=== PATIENT | female | born 1960 | race Caucasian/White ===

== ENCOUNTER → 2016-11-14 11:24 | Outpatient (CLI) | payer BC ==
[2016-04-22 11:11] VITALS: BMI 21.0
[~2016-11-14 11:24] MED LIST: CALCIUM 600+D T1 TA1 PO; DEMEROL 50 M50 MG/ML IM; IBUPROFEN600 MG PO; IBUPROFEN800 MG PO; MACROBID100 MG GT; OS-CAL500 MG PO; ULTRAM50 MG PO; VITAMIN D10000 UNI1 PO; VITAMIN D31000 UNI2 PO
== END | disposition home or self-care (01) ==
LOC: D.MRI 11:24
DX: M54.9 Dorsalgia, unspecified (principal)

== ENCOUNTER 2016-11-30 06:27 | Outpatient (CLI) | payer BC ==
[~2016-11-30] VITALS: Ht 162.6 cm; Wt 55.0 kg
[2016-11-30 07:36] VITALS: BP 111/69; Ht 162.6 cm; Wt 55.0 kg
[2016-11-30 07:43] LABS: BASOPHILS 0.9 % (0-2); HEMATOCRIT 39.9 % (36.0-48.0); HEMOGLOBIN 13.6 g/dL (12-16); LYMPHOCYTES 31.3 % (15-50); MCH 29.8 pg (26.0-34.0); MCHC 34.1 g/dL (31.0-37.0); MCV 87.5 fL (80.0-100.0); MEAN PLATELET VOLUME 9.9 fL (7.4-10.4); MONOCYTES 8.6 % (2-11); NEUTROPHILS 57.2 % (40-80); PLATELET COUNT 173 10x3/uL (130-400); RBC 4.56 10x6/uL (4.00-5.40); RDW 13.4 % (11.5-14.5); WBC 3.5 10x3/uL (4.8-10.8)
[2016-11-30 07:55] LABS: CALC OSMOLALITY 282 mosm/kg (275-300); CALCIUM 8.6 mg/dL (8.5-10.1); CARBON DIOXIDE 30.9 mmol/L (21.0-32.0); CHLORIDE - SERUM 105 mmol/L (98-107); CREATININE - SERUM 0.7 mg/dL (0.6-1.3); GLUCOSE 90 mg/dL (74-106); POTASSIUM - SERUM 4.1 mmol/L (3.5-5.1); SODIUM 141 mmol/L (136-145); UREA NITROGEN 18 mg/dL (7-18); eGFR NON AFRICAN AMERICAN > 90 mL/min (90-120)
[2016-11-30 07:58] LABS: APTT 27.7 SECONDS (22.8-39.4); INR 0.97 (0.85-1.17); PROTIME 12.7 SECONDS (11.6-15.0)
--- NOTE | 2016-11-30 10:45 | NUR ---
1043--PT COMPLAINS OF PAIN, RATES PAIN 4/10. TORODOL 30MG SIVP GIVEN, PT TOLERATED WELL. PT DENIES NEEDS, WILL CONTINUE TO MONITOR. TRACY BRADFORD
--- NOTE | 2016-11-30 10:49 | NUR ---
1000--ALL VITAL SIGNS CHARTED ON POST PROCEDURE VITAL SIGN SHEET ON CHART. TRACY BRADFORD
--- NOTE | 2016-11-30 17:33 | NUR ---
1201--PT COMPLAINS OF PAIN, RATES PAIN 01/07. OXYCODONE 10MG GIVEN PO, IV DC'D. TRACY BRADFORD 1220--DISCHARGE INSTRUCTIONS GIVEN, PT VERBALIZES UNDERSTANDING. PT OFF UNIT VIA HOSPITAL PERSONNEL. TRACY BRADFORD
== END 2016-11-30 12:20 | disposition home or self-care (01) ==
LOC: D.OPS 06:27 → D.CT 08:00 → D.OPS 08:00
PROVIDERS: Radiology Diagnostic Radiology
DX: C79.51 Secondary malignant neoplasm of bone (principal); Z85.3 Personal history of malignant neoplasm of breast

== ENCOUNTER 2016-12-09 06:37 | Outpatient (CLI) | payer BC ==
[~2016-12-09] VITALS: Ht 162.6 cm; Wt 54.5 kg
[2016-12-09] MEDS ORDERED: ROBAXIN-750750 MG PO (07:31)
[2016-12-09 07:48] VITALS: BP 122/75; Ht 162.6 cm; Wt 54.5 kg
[2016-12-09 08:14] LABS: BASOPHILS 0.5 % (0-2); EOSINOPHILS 2.9 % (0-7); HEMATOCRIT 40.9 % (36.0-48.0); HEMOGLOBIN 13.5 g/dL (12-16); IMMATURE GRANULOCYTES 0.3 % (0-5); LYMPHOCYTES 20.6 % (15-50); MCV 87.8 fL (80.0-100.0); MONOCYTES 6.1 % (2-11); NEUTROPHILS 69.6 % (40-80); PLATELET COUNT 185 10x3/uL (130-400); RBC 4.66 10x6/uL (4.00-5.40); RDW 13.3 % (11.5-14.5); WBC 3.8 10x3/uL (4.8-10.8)
[2016-12-09 08:21] LABS: APTT 27.6 SECONDS (22.8-39.4); CALC OSMOLALITY 282 mosm/kg (275-300); CARBON DIOXIDE 30.9 mmol/L (21.0-32.0); CHLORIDE - SERUM 106 mmol/L (98-107); CREATININE - SERUM 0.5 mg/dL (0.6-1.3); GLUCOSE 101 mg/dL (74-106); INR 0.91 (0.85-1.17); PROTIME 12.1 SECONDS (11.6-15.0); SODIUM 141 mmol/L (136-145); UREA NITROGEN 17 mg/dL (7-18); eGFR NON AFRICAN AMERICAN > 90 mL/min (90-120)
--- NOTE | 2016-12-09 09:33 | NUR ---
0915--ALL VITAL SIGNS CHARTED ON POST PROCEDURE VITAL SIGN SHEET ON CHART. TRACY BRADFORD
--- NOTE | 2016-12-09 12:49 | NUR ---
1200--IV DC'D. PT UP TO DRESS AT THIS TIME. TRACY BRADFORD 1240--OK TO DISCHARGE PER STEF SINGER RATING OFFICER. DISCHARGE INSTRUCTIONS GIVEN, PT VERBALIZES UNDERSTANDING. PT OFF UNIT VIA WC. TRACY BRADFORD
[2016-12-09 15:09] LABS: PROTEIN - BODY FLUID 4.4 G/DL
[2016-12-09 15:59] LABS: LYMPH - BF 26 %; MACROPHAGES BF 68 %; MESOTHELIALS BF 3 %; NEUT - BF 3 %
== END 2016-12-09 12:40 | disposition home or self-care (01) ==
LOC: D.OPS 06:37 → D.SP 09:00 → D.OPS 12:40
PROVIDERS: General Practice; Internal Medicine Medical Oncology; Radiology Diagnostic Radiology
DX: C50.919 Malignant neoplasm of unspecified site of unspecified female breast (principal); J90 Pleural effusion, not elsewhere classified

== ENCOUNTER → 2016-12-30 14:53 | Outpatient (CLI) | payer BC ==
[2016-12-09 07:48] VITALS: BMI 20.6
[~2016-12-30 14:53] MED LIST changes: +ROBAXIN-750750 MG PO; +ZOFRAN ODT4 MG/UDTAB PO
== END | disposition home or self-care (01) ==
LOC: D.CT 14:53
DX: R31.0 Gross hematuria (principal)

== ENCOUNTER 2017-01-05 08:29 | Day surgery (SDC) | payer BC ==
[~2017-01-05] VITALS: Ht 162.6 cm; Wt 53.5 kg
[2017-01-05 09:39] LABS: BASOPHILS 1.3 % (0-2); EOSINOPHILS 1.3 % (0-7); HEMATOCRIT 40.7 % (36.0-48.0); HEMOGLOBIN 13.3 g/dL (12-16); IMMATURE GRANULOCYTES 0.9 % (0-5); LYMPHOCYTES 30.3 % (15-50); MCH 29.3 pg (26.0-34.0); MCHC 32.7 g/dL (31.0-37.0); MCV 89.6 fL (80.0-100.0); MEAN PLATELET VOLUME 9.6 fL (7.4-10.4); MONOCYTES 9.7 % (2-11); NEUTROPHILS 56.5 % (40-80); PLATELET COUNT 208 10x3/uL (130-400); RBC 4.54 10x6/uL (4.00-5.40); WBC 3.2 10x3/uL (4.8-10.8)
[2017-01-05 09:44] VITALS: BP 123/81; Ht 162.6 cm; Wt 53.5 kg
[2017-01-05 09:58] LABS: ALBUMIN 3.7 g/dL (3.4-5.0); ALKALINE PHOSPHATASE 83 U/L (46-116); ALT (SGPT) 24 U/L (10-68); BILIRUBIN - TOTAL 0.37 mg/dL (0.2-1.3); CALC OSMOLALITY 281 mosm/kg (275-300); CALCIUM 8.2 mg/dL (8.5-10.1); CARBON DIOXIDE 27.5 mmol/L (21.0-32.0); CHLORIDE - SERUM 106 mmol/L (98-107); CREATININE - SERUM 0.6 mg/dL (0.6-1.3); GLUCOSE 96 mg/dL (74-106); POTASSIUM - SERUM 4.1 mmol/L (3.5-5.1); PROTEIN - SERUM 7.1 g/dL (6.4-8.2); SODIUM 141 mmol/L (136-145); UREA NITROGEN 16 mg/dL (7-18); eGFR NON AFRICAN AMERICAN > 90 mL/min (90-120)
[2017-01-05 10:03] LABS: APTT 28.4 SECONDS (22.8-39.4); INR 0.95 (0.85-1.17); PROTIME 12.5 SECONDS (11.6-15.0)
--- NOTE | 2017-01-06 15:49 | OP ---
PATIENT NAME: TYRA MARTINEZ MEDICAL RECORD: [id number] :58 LOCATION:D.OPS ADMISSION DATE: SURGEON: GARRY ESPINOZA MD DATE OF OPERATION: 01/05/2017 DATE OF SURGERY: 01/05/2017. SURGEON: Garry Espinoza MD. ANESTHESIA: MAC by Boston Dumont CRNA. PREOPERATIVE DIAGNOSES: Gross hematuria, metastatic breast cancer. POSTOPERATIVE FINDINGS: Single ureteral orifices. No bladder tumors. PROCEDURE: Cystoscopy. ESTIMATED BLOOD LOSS: None. CLINICAL HISTORY: This is a 56-year-old female, who has had breast cancer. She has had bilateral mastectomies. She is also known to have metastatic disease to the bone. Just after Thanksgiving last year she developed gross hematuria. There was only one episode and it has not happened again. I saw her in consultation for hematuria. She had a CT scan of the abdomen and pelvis. This showed possible abdominal carcinomatosis as well as breast cancer metastases to the spine. The kidneys, ureters and bladder appeared to be normal on the CT scan. We are performing cystoscopy today to make sure that she does not have any tumors in her bladder. She was given Ancef 1 gram IV credit verification clerk to the OR. DESCRIPTION OF PROCEDURE: The patient was given IV sedation. She was placed in the dorsal lithotomy position and prepped and draped. A 21-Bengali cystoscope with 30-degree lens was used for visualization. She has single ureteral orifices on each side. No bladder tumors were seen. No bladder inflammation was seen. The bladder was emptied through the cystoscope and the scope was removed. TRANSINT:[id number] Voice Confirmation ID: [id number] DOCUMENT ID: [id number] GARRY ESPINOZA MD at 1549 CC: [id number] DICTATION DATE: 01/05/17 1223 FASHION SHOW DIRECTOR: 01/05/17 2158 [facility] 01/05/17 [place] [id number]
== END 2017-01-05 13:25 | disposition home or self-care (01) ==
LOC: D.OPS 08:29 → D.PAN 11:00 → D.OPS 11:00
PROVIDERS: Anesthesiology
DX: R31.0 Gross hematuria (principal); C50.919 Malignant neoplasm of unspecified site of unspecified female breast; C79.51 Secondary malignant neoplasm of bone

== ENCOUNTER → 2017-05-02 14:16 | Outpatient (CLI) | payer BC ==
[2017-01-05 09:44] VITALS: BMI 20.3
== END | disposition home or self-care (01) ==
LOC: D.MRI 14:00
DX: C50.919 Malignant neoplasm of unspecified site of unspecified female breast (principal); C79.51 Secondary malignant neoplasm of bone

== ENCOUNTER → 2017-11-30 08:02 | Outpatient (CLI) | payer BC ==
[2017-01-05 09:44] VITALS: BMI 20.3
== END | disposition home or self-care (01) ==
LOC: D.NM 08:02
DX: C50.919 Malignant neoplasm of unspecified site of unspecified female breast (principal); C79.51 Secondary malignant neoplasm of bone

== ENCOUNTER → 2018-07-18 11:20 | Outpatient (CLI) | payer BC ==
[2017-01-05 09:44] VITALS: BMI 20.3
== END | disposition home or self-care (01) ==
LOC: D.MRI 11:20
DX: M54.5 Low back pain (principal)

== ENCOUNTER 2018-11-20 16:32 | Emergency (ER) | payer BC ==
[~2018-11-20] VITALS: Ht 162.6 cm; Wt 49.5 kg
[2018-11-20 16:37] VITALS: Ht 162.6 cm; Wt 49.5 kg
[2018-11-20] MEDS ORDERED: TAMOXIFEN CITRA20 MG PO (16:38)
[2018-11-20] MEDS ORDERED: ASPIRIN81 MG PO (16:38)
[2018-11-20 17:17] LABS: HEMOGLOBIN 13.5 g/dL (12-16); MCH 28.8 pg (26.0-34.0); MCHC 32.9 g/dL (31.0-37.0); MCV 87.4 fL (80.0-100.0); MEAN PLATELET VOLUME 10.6 fL (7.4-10.4); PLATELET COUNT 173 10x3/uL (130-400); RBC 4.69 10x6/uL (4.00-5.40); RDW 14.4 % (11.5-14.5); WBC 2.9 10x3/uL (4.8-10.8)
[2018-11-20 17:37] LABS: APPEARANCE CLEAR (CLEAR); COLOR YELLOW (YELLOW); SPECIFIC GRAVITY 1.025 (1.005-1.020)
[2018-11-20 17:38] LABS: BILIRUBIN NEGATIVE (NEGATIVE); GLUCOSE NEGATIVE (NEGATIVE); KETONE NEGATIVE (NEGATIVE); NITRITE NEGATIVE (NEGATIVE); PROTEIN NEGATIVE (NEGATIVE); UROBILINOGEN NORMAL (NORMAL)
[2018-11-20 17:47] LABS: ALBUMIN 3.4 g/dL (3.4-5.0); ANION GAP 8.9 mmol/L (8-16); BILIRUBIN - TOTAL 0.21 mg/dL (0.2-1.3); CALCIUM 8.6 mg/dL (8.5-10.1); CARBON DIOXIDE 28.5 mmol/L (21.0-32.0); CREATININE - SERUM 0.9 mg/dL (0.6-1.3); POTASSIUM - SERUM 3.4 mmol/L (3.5-5.1)
[2018-11-20 17:58] LABS: EOSINOPHILS 4 % (0-7); LYMPHOCYTES 26 % (15-50); MONOCYTES 6 % (2-11); NEUTROPHILS 62 % (40-80); PLATELET ESTIMATE NORMAL
[2018-11-20] MEDS ORDERED: ZOFRAN ODT4 MG/UDTAB PO (22:10)
[2018-11-20] MEDS ORDERED: FLORASTOR250 MG PO (22:10)
[2018-11-20 22:18] VITALS: BP 170/76
== END 2018-11-20 23:12 | disposition home or self-care (01) ==
LOC: D.ER 16:32
PROVIDERS: Family Medicine
DX: R19.7 Diarrhea, unspecified (principal); R11.2 Nausea with vomiting, unspecified; B34.9 Viral infection, unspecified; Z85.3 Personal history of malignant neoplasm of breast

== ENCOUNTER → 2019-06-19 10:38 | Outpatient (CLI) | payer MEDICARE, BC ==
[2018-11-20 16:37] VITALS: BMI 18.7
[~2019-06-19 10:38] MED LIST changes: +ASPIRIN81 MG PO; +FLORASTOR250 MG PO; +TAMOXIFEN CITRA20 MG PO
== END | disposition home or self-care (01) ==
LOC: D.MRI 10:38
PROVIDERS: ATTEND Family Medicine
DX: C79.51 Secondary malignant neoplasm of bone (principal); M54.41 Lumbago with sciatica, right side

== ENCOUNTER → 2020-01-01 11:26 | Outpatient (CLI) | payer MEDICARE, BC ==
[2018-11-20 16:37] VITALS: BMI 18.7
== END | disposition home or self-care (01) ==
LOC: D.CT 11:26
PROVIDERS: ATTEND Family Medicine
DX: R05 Cough (principal)

== ENCOUNTER 2020-01-19 21:40 | Inpatient (IN) | payer MEDICARE, BC ==
[~2020-01-19] VITALS: Ht 162.6 cm; Wt 51.7 kg
[2020-01-19] MEDS ORDERED: AUGMENTIN PO (21:50)
[2020-01-19] MEDS ORDERED: ELDERBERRY PO (21:53)
[2020-01-19 22:36] LABS: HEMATOCRIT 34.3 % (36.0-48.0); HEMOGLOBIN 11.2 g/dL (12-16); LYMPHOCYTES 18.5 % (15-50); MCHC 32.7 g/dL (31.0-37.0); MEAN PLATELET VOLUME 7.8 fL (7.4-10.4); NEUTROPHILS 74.7 % (40-80); RBC 3.61 10x6/uL (4.00-5.40); RDW 13.6 % (11.5-14.5); WBC 7.7 10x3/uL (4.8-10.8)
[2020-01-19 22:37] LABS: PLATELET COUNT 407 10x3/uL (130-400)
[2020-01-19 22:46] LABS: CALC OSMOLALITY 267 mosm/kg (275-300); CARBON DIOXIDE 30.2 mmol/L (21.0-32.0); CHLORIDE - SERUM 97 mmol/L (98-107); SODIUM 134 mmol/L (136-145); UREA NITROGEN 10 mg/dL (7-18); eGFR NON AFRICAN AMERICAN 60 mL/min (90-120)
[2020-01-19 22:48] LABS: GLUCOSE 121 mg/dL (74-106)
[2020-01-19 23:03] LABS: ALBUMIN 3.2 g/dL (3.4-5.0); ALKALINE PHOSPHATASE 83 U/L (30-120); ALT (SGPT) 14 U/L (10-68); BILIRUBIN - TOTAL 0.35 mg/dL (0.2-1.3); C-REACTIVE PROTEIN 6.4 mg/dL (0.0-0.9); PRO BNP 138 pg/mL (0-125); PROTEIN - SERUM 7.6 g/dL (6.4-8.2)
[2020-01-19 23:04] LABS: TROPONIN-I < 0.017 ng/mL (0.000-0.060)
[2020-01-19 23:46] LABS: GLUCOSE NEGATIVE (NEGATIVE); NITRITE NEGATIVE (NEGATIVE); SPECIFIC GRAVITY 1.015 (1.005-1.020)
[2020-01-19 23:47] LABS: BILIRUBIN NEGATIVE (NEGATIVE); KETONE NEGATIVE (NEGATIVE); UROBILINOGEN NORMAL (NORMAL)
[2020-01-19 23:48] LABS: BACTERIA FEW /hpf (NEGATIVE); EPITHELIAL CELLS NSEEN /hpf (0-5); RED CELLS - URINE NONE SEEN /hpf (0-5); WHITE CELLS - URINE 0-5 /hpf (NEGATIVE)
[2020-01-20] MEDS ORDERED: AMOX TR-K CLV 21 TAB PO (00:20)
[2020-01-20] MEDS ORDERED: ZOFRAN8 MG PO (00:22)
[2020-01-20] MEDS ORDERED: PROBIOTIC BLEN1 EACH (00:22)
[2020-01-20] MEDS ORDERED: FEMARA2.5 MG PO (00:24)
[2020-01-20] MEDS ORDERED: BAYER CHEWABLE81 MG PO (00:24)
[2020-01-20] MEDS ORDERED: OS-CAL500 MG PO (00:26)
[2020-01-20] MEDS ORDERED: MULTI-DAY VITAM1 TAB PO (00:28)
[2020-01-20] MEDS ORDERED: VITAMIN D5000 UNI1 PO (00:28)
[2020-01-20] MEDS ORDERED: ASCORBIC ACID500 MG PO (00:29)
--- NOTE | 2020-01-20 00:43 | NUR ---
RECEIVED TO ROOM VIA STRECHER FROM ER. ALERT.ORIENTD. RESP EVEN AND UNLAOBRED. IV TO RFA WITHOUT REDNESS OR EDEMA NOTED. UP AD ISMAEL IN ROOM. NO DISTRESS NOTED. ORIENTED TO ROOM.
[2020-01-20 01:19] VITALS: BP 114/76; BMI 19.6
[2020-01-20 04:00] VITALS: BP 91/61
--- NOTE | 2020-01-20 06:50 | NUR ---
ALERT AND ORIENTED, RESTING IN BED WITH EYES OPEN. NO C/O PAIN. NO S/S OF ACUTE DISTRESS NOTED. IV TO RIGHT FOREARM, SL. SITE PATENT WITHOUT REDNESS OR SWELLING. DENIES ANY NEEDS AT THIS TIME. CALL LIGHT IN REACH. WILL CONTINUE TO MONITOR.
--- NOTE | 2020-01-20 09:05 | NUR ---
ADMINSTERED TB SKIN TEST TO RIGHT FOREARM
[2020-01-20 09:31] VITALS: BP 109/71
--- NOTE | 2020-01-20 10:37 | NUR ---
I have reviewed this patient and I concur with the Shift Assessment completed by the Licensed Practical Nurse today this shift.
--- NOTE | 2020-01-20 13:44 | HP ---
PATIENT: TYRA MARTINEZ MEDICAL RECORD: [id number] ACCOUNT: [id number] LOCATION:D.MS [place]3 : 58 ADMISSION DATE: 01/19/20 PCP: HARISH VO MD HISTORY AND PHYSICAL EXAMINATION REASON FOR ADMISSION: Cough with fevers for 6 weeks. HISTORY OF PRESENT ILLNESS: The patient is a 59-year-old female with history of stage IV malignant neoplasm of the breast, ER status positive, TN status positive, HER2 gene amplification FISH negative, HER2 gene protein overexpression. The patient has been on tamoxifen for some time. She had a PET CT scan per Dr. Tovar recently, which showed chronic thoracic and lumbar lytic lesions and some mild lymphadenopathy. On November 27 of this year, she developed some pleuritic pain in her left lower chest. She was seen in the office with a negative chest film, was placed on a steroid Dosepak and Z-PATRICIA as she had productive cough. This has seemed to improve. She had surgery for a tendinitis in her left wrist at [facility] on 12/16/2019. Developed 101 fever 2 days after surgery. COVID swab was negative. Her fever continued at 101.4 up to 100.8 and a chest x-ray in the office was unremarkable and doxycycline was started for 10 days. Her fever gradually defervesced and by 01/01/2020, she was afebrile. On 01/02/2020, she had CT scan of her chest because of recurrent cough and chills and did show bilateral ground-glass appearance suggesting viral or bacterial pneumonia. For that reason, she was started on Levaquin for 7 days with improvement in symptoms again. She then had a COVID antibody test that was negative with swab again was negative. She finished Levaquin on 01/10/2020, was afebrile for 3 days and temperature came back to 100.7. Augmentin was started empirically on 01/15/2020, fever, has not improved. She has been checking her oxygen saturations at rest, they are 96-97 even with ambulating when she rests and recovery it will drop to 90%. She has had a pleuritic pain in her left chest, it is better than it was. When she exhales quickly she does cough, but the cough is nonproductive. She has had no change in sense of smell or taste throughout this entire time. PAST MEDICAL HISTORY: Breast cancer as mentioned above, postmenopausal, history of hepatitis C, post-interferon therapy. History of remote SVT, history of cervical disc disease with spinal fusion, had lumbar compression fracture with lumbar metastases. PAST SURGICAL HISTORY: Cervical spinal fusion, TAHBSO in 2016 with cystocele and rectocele repair. Bilateral mastectomy in 2003. Reconstructive breast implants by Dr. Solares. Tonsillectomy as a child. FAMILY HISTORY: Father with amyloid and COPD, and mother with breast cancer. 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 CURRENT MEDICATIONS: Augmentin 500 mg t.i.d. p.c., Femara 2.5 mg daily, aspirin 81 mg daily, Ultram 50 mg q.6 hours p.r.n. back pain, vitamin D 500 mg b.i.d., Zofran 8 mg p.r.n. nausea, Florastor 250 mg capsule p.o. b.i.d., vitamin C 500 mg daily, vitamin D3 2000 units daily, multivitamin 1 daily, elderberry p.r.n. ALLERGIES: MORPHINE. REVIEW OF SYSTEMS: HISTORY AND PHYSICAL [id number] CARLOS MARTINEZGAYATRI Sim GENERAL: She has been fatigued for the last 6 weeks. She has had fair appetite and intermittent fevers as mentioned. HEENT: No recent visual change, sinus congestion, sore throat, or loss of sense of taste or smell. Hearing is good. RESPIRATORY: She denies shortness of breath with moderate exercise, worse if she has increased exercise. She will cough when she exhales and had pleuritic pain in her left lower chest wall below her breast implant that has improved. Cough has been nonproductive. No hemoptysis. CARDIAC: No palpitations, PND, orthopnea. GASTROINTESTINAL: No nausea, vomiting, change in stools or blood per rectum. GENITOURINARY: No dysuria. GYNECOLOGIC: No vaginal bleeding. ENDOCRINE: Denies polyuria, polydipsia, heat or cold intolerance. NEUROLOGIC: No history of stroke, TIA, or vascular headaches. INTEGUMENT: No rash or itching. PSYCHIATRIC: Admits to some depressed mood, but overall has no suicidal tendencies. PHYSICAL EXAMINATION: VITAL SIGNS: Temperature 98.2, respirations are 20, pulse 98, blood pressure 137/95, sats 99% on room air. GENERAL: Thin, alert female, NAD. HEENT: Her eyes are clear. Oropharynx unremarkable. Her throat shows mild erythema of the soft palate. No petechiae, pustules or exudate. Her tonsils are absent surgically. NECK: Supple, without adenopathy. CHEST: She has faint wheezes with coughing on forced expiration bilaterally. No rales. HEART: Regular rate and rhythm without murmur. BREASTS: Implants symmetrical. There is no axillary adenopathy. No inguinal adenopathy. ABDOMEN: Soft, nontender, no organomegaly. EXTREMITIES: No CC&E. NEUROLOGICAL: Oriented to person, place, and time. Cranial nerves intact. Gait normal. PSYCHIATRIC: Mood appears good. LABORATORY DATA: Shows a white count 7700 with 74 polys and 18 lymphs, platelet count is 407,000. Sodium is 134, BUN and creatinine are 10 and 1.0, glucose 121 nonfasting. Lactic acid 0.5. C-reactive protein is elevated at 6.4. ProBNP is 138, albumin low at 3.2. Influenza A and B were negative. RSV rapid is negative. Group A strep is negative. Previous COVID nasal swab times 2 and serum antibody tests are negative. DIAGNOSTIC DATA: She reports she had a chest x-ray on admission last night, I did not see that. Her CT chest from 01/01/2020 shows patchy ground-glass opacities in the right greater than left lungs peripherally. Focal left lower lobe consolidation may indicate atelectasis, but underlying mass is not ruled out. ASSESSMENT: 1. Atypical pneumonia with fever, unresponsive to oral antibiotics. 2. COVID negative 3. Stage IV breast cancer with recent CT PET scan at [facility] showing some adenopathy, but overall stable. HISTORY AND PHYSICAL [id number] TYRA MARTINEZ PLAN: Start empiric antibiotics, pulmonary consult, may need bronchoscopy, repeat CT scan. TRANSINT:[id number] Voice Confirmation ID: [id number] DOCUMENT ID: [id number] HARISH VO MD at 1344 CC: [id number] DICTATION DATE: 01/20/20 0711 FLUX MIXER: 01/20/20 1211 ADM IN [place] [id number] [place] [address]
[2020-01-20 14:02] VITALS: BP 110/68
--- NOTE | 2020-01-20 16:41 | NUR ---
PT WASHED SELF UP WITH LINEN CHANGE. C/L IN REACH AT BEDSIDE.
[2020-01-20 18:40] VITALS: BP 107/70
--- NOTE | 2020-01-20 18:47 | NUR ---
ALERT AND ORIENTED. NO C/O PAIN. NO S/S OF ACUTE DISTRESS NOTED. DENIES ANY NEEDS AT THIS TIME. CALL LIGHT IN REACH. WILL CONTINUE TO MONITOR.
[2020-01-20 20:46] VITALS: BP 105/79
--- NOTE | 2020-01-20 23:30 | NUR ---
PATIENT REQUESTED DOCUMENTATION. PATIENT WAS UP TO THE BATHROOM AND REPORTS," A CHILL ON RETURNING TO BED." SHE THEN CHECKED HER TEMP WITH HER THERMOMETER AND GOT A TEMP OF 100.0. TECH THEN CHCKED HER TEMP 5 MINUTES LATER AT 2335 AND GOT A TEMP OF 98.2.
[2020-01-21] VITALS (7 sets, daily range): BP systolic 108–144; BP diastolic 57–81; Ht 162.6 cm; Wt 51.7 kg
--- NOTE | 2020-01-21 07:43 | NUR ---
ALERT AND ORIENTED. LUNGS CLEAR BILATERALLY. HEART SOUNDS S1 AND S2 HEARD IN ALL VALENTIN. BOWEL SOUNDS ACTIVE X 4. IV TO RFA PATENT WITHOUT REDNESS. PATIENT STATES THAT WHEN TAKES OWN TEMP WITH GLASS THERMOMETER FROM HOME, SPIKES FEVER AT NIGHT. STATES WANTS TEMP DOCUMENTED WITH HER THERMOMETER. WILL CHART IN NOTES. BED LOW. CALL DICK AND PERSONAL ITEMS IN REACH. WILL CONTINUE TO MONITOR.
--- NOTE | 2020-01-21 08:30 | NUR ---
CALLED PHARMACY TO BRING PATIENT'S LETRAZOLE. STATES WILL BRING.
--- NOTE | 2020-01-21 11:38 | NUR ---
PATIENT C/O IV PAINFUL TO RIGHT WRIST/FOREARM AREA. REMOVED WITH TIP INTACT. RESITED TO RFA AFTER ONE ATTEMPT WITH 20GAUGE.
[2020-01-21 14:31] LABS: BASOPHILS 0.5 % (0-2); EOSINOPHILS 3.1 % (0-7); HEMATOCRIT 31.7 % (36.0-48.0); HEMOGLOBIN 10.2 g/dL (12-16); IMMATURE GRANULOCYTES 0.3 % (0-5); LYMPHOCYTES 15.2 % (15-50); MCH 30.4 pg (26.0-34.0); MCHC 32.2 g/dL (31.0-37.0); MCV 94.3 fL (80.0-100.0); MEAN PLATELET VOLUME 8.6 fL (7.4-10.4); MONOCYTES 10.6 % (2-11); NEUTROPHILS 70.3 % (40-80); RBC 3.36 10x6/uL (4.00-5.40); RDW 13.9 % (11.5-14.5); WBC 5.9 10x3/uL (4.8-10.8)
[2020-01-21 14:49] LABS: APTT 36.9 SECONDS (22.8-39.4)
[2020-01-21 14:50] LABS: INR 1.03 (0.85-1.17); PROTIME 13.5 SECONDS (11.6-15.0)
[2020-01-21 15:00] LABS: PLATELET COUNT 298 10x3/uL (130-400)
[2020-01-22] VITALS (12 sets, daily range): BP systolic 103–123; BP diastolic 64–88
--- NOTE | 2020-01-22 02:21 | NUR ---
I have reviewed this patient and I concur with the Shift Assessment completed by the Licensed Practical Nurse today this shift.
--- NOTE | 2020-01-22 07:33 | NUR ---
ALERT AND ORIENTED. LUNGS CLEAR BILATERALLY. HEART SOUNDS S1 AND S2 HEARD IN ALL FIELS. BOWEL SOUNDS ACTIVE X 4. IV TO RFA PATENT WITHOUT REDNESS. DENIES NEEDS. BED LOW. CALL DICK AND PERSONAL ITEMS IN REACH. WILL CONTINUE TO MONITOR.
--- NOTE | 2020-01-22 09:36 | NUR ---
TB SKIN TEST READ. NEGATIVE. 0MM. RESULTS ON CHART.
--- NOTE | 2020-01-22 10:00 | NUR ---
PREOP MEDS GIVEN PER ORDER.
--- NOTE | 2020-01-22 10:37 | NUR ---
PATIENT TAKEN FOR BRONCHOSCOPY.
--- NOTE | 2020-01-22 11:48 | NUR ---
PATIENT RETURNED FROM BRONCHOSCOPY. VITALS STABLE.
--- NOTE | 2020-01-22 13:02 | NUR ---
PATIENT SLEEPING. POST OP VITALS REMAIN STABLE. WILL CONTINUE TO MONITOR.
[2020-01-22 14:09] LABS: CA 27-29 67.4 U/mL (0.0-38.6)
--- NOTE | 2020-01-22 14:25 | NUR ---
PATIENT UP IN CHAIR DRINKING COFFEE. INFORMED THAT WOULD BE ON LIQUID DIET AND WILL ADVANCE TOLERATED. STATES ALREADY HAS BEEN EATING CRACKERS IN ROOM. REQUESTS DIET BE ADVANCED FOR DINNER.
[2020-01-22 16:09] LABS: CEA 14.1 ng/mL (0.0-4.7)
--- NOTE | 2020-01-22 18:04 | NUR ---
SITTING IN CHAIR AT BEDSIDE. DENIES NEEDS. WILL CONTINUE TO MONITOR.
[2020-01-23] VITALS: BP 113/73
[2020-01-23 04:00] VITALS: BP 124/75
[2020-01-23 11:05] VITALS: BP 115/70
--- NOTE | 2020-01-23 14:00 | NUR ---
Nutrition follow-up: Diet: Regular PO Intake 75-100% of meals; has been NPO for at least 1 meal Labs reviewed Wt: 113# PO intake is good at this time RDM following.
[2020-01-23 15:07] VITALS: BP 120/85
[2020-01-23 17:08] LABS: ACID FAST SMEAR Negative (()); AFB SPECIMEN PROCESSING Concentration (())
[2020-01-23 20:00] VITALS: BP 124/87
--- NOTE | 2020-01-23 22:43 | NUR ---
ASSESSED AT THE BEGINNING OF THE SHIFT. PT IS ALERT AND ORIENTED. ABLE TO VERBALIZE NEEDS. SHE REQUESTED COUGH MEDS AT THE START AND LATER TOOK ALL HER HS MEDS. ROOM AIR ONLY AND HAS NOT BEEN COUGHING ALOT SINCE THE COUGH MEDS.
[2020-01-24 04:00] VITALS: BP 121/81
[2020-01-24 05:18] LABS: CALC OSMOLALITY 272 mosm/kg (275-300); CALCIUM 8.3 mg/dL (8.5-10.1); CARBON DIOXIDE 28.2 mmol/L (21.0-32.0); CHLORIDE - SERUM 103 mmol/L (98-107); CREATININE - SERUM 0.7 mg/dL (0.6-1.3); GLUCOSE 104 mg/dL (74-106); POTASSIUM - SERUM 3.8 mmol/L (3.5-5.1); SODIUM 137 mmol/L (136-145); UREA NITROGEN 9 mg/dL (7-18); eGFR NON AFRICAN AMERICAN 90 mL/min (90-120)
--- NOTE | 2020-01-24 09:00 | NUR ---
ALERT AND ORIETNED X4. LUNGS DIMINISHED X4 POSTERIOR W/O DYSPNEA.ENCOURAGED TO USE CALL LIGHT FOR ASSSIT
[2020-01-24 09:07] VITALS: BP 117/80
[2020-01-24 14:19] VITALS: BP 113/69
[2020-01-24 17:00] VITALS: BP 133/91
[2020-01-24 20:00] VITALS: BP 113/78
--- NOTE | 2020-01-25 02:08 | NUR ---
RESTING IN BED WITH NO NOTED NEEDS AT THIS TIME. CALL LIGHT AND WATER IN REACH. IV TO RIGHT FOREARM WITH NS AT 5ML/HR SCD'S IN PLACE/ ALERT AND ORENTED X4 .
[2020-01-25 08:27] VITALS: BP 124/75
--- NOTE | 2020-01-25 09:25 | NUR ---
PT ALERT X 4. BREATH SOUNDS CLEAR BILAT. IV TO RIGHT FOREARM, PATENT, DRESSING CDI. PT REPORTING PAIN OF 5/10, MEDICATED PER ORDERS, WILL CONTINUE TO MONITOR. SITTING UP IN CHAIR. BED LOW, CALL LIGHT IN REACH. NO OTHER NEEDS AT THIS TIME.
[2020-01-25 13:15] VITALS: BP 128/81
--- NOTE | 2020-01-25 19:00 | NUR ---
BEDSIDE REPORT RECEIVED AND CARE OF PT ASSUMED. PT LYING IN HIGH BARRAGAN'S POSITION WATCHING TV. IV TO RIGHT FA PATENT WITH NS INFUSING AT KVO. WILL MONITOR FOR NEEDS.
[2020-01-25 20:00] VITALS: BP 113/80
--- NOTE | 2020-01-25 20:48 | NUR ---
HS MEDICATIONS GIVEN TO INCLUDE ULTRAM PER REQUEST FOR PAIN, PER PRN ORDER. WILL CONTINUE TO MONITOR FOR NEEDS.
--- NOTE | 2020-01-25 23:26 | NUR ---
PT REQUESTED NOT TO BE DISTURBED BETWEEN 10 PM AND 6AM.
[2020-01-26 04:00] VITALS: BP 117/70
--- NOTE | 2020-01-26 09:32 | NUR ---
PT ALERT X 4. BREATH SOUNDS CLEAR BILAT. IV TO RIGHT FOREARM, PATENT, DRESSING CDI. PT REPORTING PAIN OF 4/10, MEDICATED PER ORDERS, WILL CONTINUE TO MONITOR. BED LOW, CALL LIGHT IN REACH. NO OTHER NEEDS AT THIS TIME.
[2020-01-26 09:35] VITALS: BP 117/78
[2020-01-26 12:31] VITALS: BP 130/88
[2020-01-26] MEDS ORDERED: PROMETHAZINE W473 ML PO (15:43)
[2020-01-26] MEDS ORDERED: VENTOLIN HFA [SP8 GM INH (15:43)
--- NOTE | 2020-01-26 17:03 | NUR ---
DISCHARGE PAPERWORK SIGNED, ALL QUESTIONS ANSWERED. IV TO RIGHT FOREARM DC'D, TIP INTACT. ESCORTED OUT VIA WHEELCHAIR.
--- NOTE | 2020-01-26 18:55 | MORECARE ---
CASE MANAGEMENT DISCHARGE SUMMARY PATIENT: TYRA MARTINEZ UNIT: [id number] ADM DATE: 01/20/20 AGE: 59 : 58 SEX: F ROOM/BED: D.2233 AUTHOR: MICHAEL BOYD PHYSICIAN: REFERRING PHYSICIAN: HARISH VO MD DATE OF SERVICE: 01/26/20 Discharge Plan Patient Name: TYRA MARTINEZ Facility: [facility]:[place] : 1960 Planned Disposition: Home Anticipated Discharge Date: Discharge Date: 01/26/2020 Expected LOS: Initial Reviewer: [email or web address] Initial Review Date: 01/20/2020 Generated: 01/26/20 7:54 pm Coverage Notice Reviewer: [email or web address] Bessie Nickerson Notice Issued Date-Time: 01/26/2020 16:22 Notice Type: IM Discharge Notice Notice Delivered To: Patient Relationship to Patient: Self Machine Repairer Name: Delivery Method: HAND - Hand Delivered Britany Days: Prior Verbal Notification: Recipient Understood Notice: Yes Recipient Signature: Yes Med Rec Note Co-signed by Attending: Coverage Notice Comment: Patient Name: TYRA MARTINEZ Page [phone] at 1855 All edits/amendments must be made on the electronic document DICTATION DATE: 01/26/201853 FOOD AND NUTRITION PROFESSOR: LUZ 01/26/201853 RPT#: [id number] DC DATE:01/26/20 STATUS: DIS IN [place] [address] [place] [address] END OF REPORT
--- NOTE | 2020-01-26 19:02 | MORECARE ---
CASE MANAGEMENT DISCHARGE SUMMARY PATIENT: TYRA MARTINEZ UNIT: [id number] ADM DATE: 01/20/20 AGE: 59 : 58 SEX: F ROOM/BED: D.2233 AUTHOR: DEBDOC PHYSICIAN: REFERRING PHYSICIAN: HARISH VO MD DATE OF SERVICE: 01/26/20 Discharge Plan Patient Name: TYRA MARTINEZ Facility: [facility]:[place] : 1960 Planned Disposition: Home Anticipated Discharge Date: Discharge Date: 01/26/2020 Expected LOS: Initial Reviewer: [email or web address] Initial Review Date: 01/20/2020 Generated: 01/26/20 8:02 pm Comments DCP- Discharge Planning Updated by [email or web address]: Mayra Nickerson on 01/26/20 5:[address] Patient Name: TYRA MARTINEZ Admission Status: ER Accout number: [id number] Admission Date: 01-20-2020 : 1960 Admission Diagnosis:FEVER, UNSPECIFIED Attending: HARISH VO Current LOS: 6 Anticipated DC Date: Planned Disposition: Home Primary Insurance: MEDICARE A & B Discharge Planning Comments: CM met with patient to complete initial dc planning assessment. CM educated patient on the CM role and verbal consent given by patient to complete assessment. Patient lives at home with family. Patient is independent. At discharge patient plans to return home and feels this is a safe discharge. CM discussed availability of home health, rehab services, and medical equipment. Patient will have family to transport home. Patient denied known discharge needs at this time. D/C IMM signed 01/26/20 @ 1622. CM will continue to follow and will assist as needed with dc plans/needs. Bee Tender: Mayra Nickerson DCPIA - Discharge Planning Initial Assessment Updated by [email or web address]: Mayra Nickerson on 01/26/20 6:56 pm * Is the patient Alert and Oriented? Yes * How many steps to enter\exit or inside your home? * PCP [facility] * Pharmacy [facility] * Preadmission Environment Home Alone * ADLs Independent * Equipment None * List name and contact numbers for known caregivers / representatives who currently or will assist patient after discharge: UNA HERNANDEZ DESIREE - [phone] RIVERA RAMÍREZ - [phone] * Verbal permission to speak to the caregivers and representatives has been obtained from the patient. Yes * Community resources currently utilized None * Additional services required to return to the preadmission environment? No * Can the patient safely return to the preadmission environment? Yes * Has this patient been hospitalized within the prior 30 days at any hospital? No Coverage Notice Reviewer: [email or web address] Bessie Nickerson Notice Issued Date-Time: 01/26/2020 16:22 Notice Type: IM Discharge Notice Notice Delivered To: Patient Relationship to Patient: Self Nuclear Physics Professor Name: Delivery Method: HAND - Hand Delivered Britany Days: Prior Verbal Notification: Recipient Understood Notice: Yes Recipient Signature: Yes Med Rec Note Co-signed by Attending: Coverage Notice Comment: Last DP export: 01/26/20 5:55 p Patient Name: TYRA MARTINEZ Page [phone] at 1902 All edits/amendments must be made on the electronic document DICTATION DATE: 01/26/201901 FRONT DESK SUPERVISOR: LUZ 01/26/201901 RPT#: [id number] DC DATE:01/26/20 STATUS: DIS IN [facility] [address] [place] [address] END OF REPORT
[2020-01-27 12:09] LABS: FUNGUS STAIN Final report (())
== END 2020-01-26 17:04 | disposition home or self-care (01) | DRG 178 ==
LOC: D.ER 21:40 → OBSVTIME 22:59 → D.MS 22:59
PROVIDERS: Family Medicine; Internal Medicine Medical Oncology; Internal Medicine Pulmonary Disease; ADMIT Family Medicine; ATTEND Family Medicine
PROC: 0BDB8ZX Extraction of Left Lower Lobe Bronchus, Via Natural or Artificial Opening Endoscopic, Diagnostic (ICD-10-PCS; principal; 2020-01-22 11:00)
DX: J15.6 Pneumonia due to other Gram-negative bacteria (principal); C79.51 Secondary malignant neoplasm of bone; J15.212 Pneumonia due to Methicillin resistant Staphylococcus aureus; C50.919 Malignant neoplasm of unspecified site of unspecified female breast; Z17.0 Estrogen receptor positive status [ER+]; K21.9 Gastro-esophageal reflux disease without esophagitis; D64.9 Anemia, unspecified

== ENCOUNTER → 2020-02-05 17:03 | Outpatient (CLI) | payer MEDICARE, BC ==
[2020-01-21 14:09] VITALS: BMI 19.5
[~2020-02-05 17:03] MED LIST changes: +AMOX TR-K CLV 21 TAB PO; +ASCORBIC ACID500 MG PO; +AUGMENTIN PO; +BAYER CHEWABLE81 MG PO; +ELDERBERRY PO; +FEMARA2.5 MG PO; +MULTI-DAY VITAM1 TAB PO; +PROBIOTIC BLEN1 EACH; +PROMETHAZINE W473 ML PO; +VENTOLIN HFA [SP8 GM INH; +VITAMIN D5000 UNI1 PO; +ZOFRAN8 MG PO
== END | disposition home or self-care (01) ==
LOC: D.RAD 17:03
PROVIDERS: ATTEND Family Medicine
DX: J18.9 Pneumonia, unspecified organism (principal)

== ENCOUNTER 2020-03-04 16:22 | Inpatient (IN) | payer MEDICARE, BC ==
[~2020-03-04] VITALS: Ht 162.6 cm; Wt 58.0 kg
--- NOTE | ~2020-03-04 | HEMODYNAMI ---
PATIENT:TYRA MARTINEZ MEDICAL RECORD: [id number] : 58 LOCATION:D.MS [id number] ADMISSION DATE: 03/04/20 Generatedon:03/07/202014:45 Patient name: TYRA MARTINEZ Patient #: [id number] SSN: : 1960 Date of study: 03/07/2020 Page: Of Hemodynamic Procedure Report Patient Data Patient Demographics Procedure consent was obtained First Name: TYRA Gender: Female Last Name: : 1960 [facility] Initial: Chiquis Age: 59 year(s) Patient #: [id number] Race: Unknown Additional ID: [id number] Contact details [address]: [address] [place] [address] State: [place] City: [place] Zip code: [address] Admission Admission Data Admission Date: 03/04/2020 Admission Time: 19:53 Room #: D.2207 Procedure Procedure Types Cath Procedure Peripheral Cath Diagnostic Procedure PICC PICC Line Placement Procedure Description Procedure Date Procedure Date: 03/07/2020 Procedure Start Time: 14:25 Procedure Staff Name Function Clarence Bocanegra MD Performing Physician Michael Maldonado RT Monitor Rufina Hicks RN Nurse Procedure Data Cath Procedure Fluoroscopy Diagnostic fluoroscopy Total fluoroscopy Time: 0.6 time: 0.6 min min Diagnostic fluoroscopy Total fluoroscopy dose: 2 dose: 2 mGy mGy Hemodynamics Rest Pre Cath Intra NCS Post Cath Procedure Log Time Note 14:13:57 Michael Maldonado RT (R) (CV) sent for patient. Start room use. 14:14:07 Time tracking: Call back (After hours or weekends) 14:14:13 Patient received from Med/Surg to IR Alert and oriented. Tansferred to table in Supine position. 14:14:21 Signed procedure consent form obtained from patient. 14:14:23 Correct patient and procedure confirmed by team. 14:14:24 Full Disclosure recording started 14:14:24 - 14:14:26 Pre-procedure instructions explained to patient. 14:14:26 Pre-op teaching completed and patient verbalized understanding. 14:14:29 Family in waiting room. 14:14:35 Use device set IR Diagnostic 14:14:36 Bag Decanter () opened to sterile field. 14:14:37 Sterile Angiographic Pack opened to sterile field. 14:14:37 Tegaderm 4 x 4 ([id number]) opened to sterile field. 14:15:32 PowerPICC 5Fr double lumen catheter opened to sterile field. 14:17:06 Right Arm area was prepped with chlora-prep and draped in sterile fashion 14:17:10 Alarms reviewed by R. N. 14:17:13 Sharps counted by scrub and verified by R.N. 14:23:54 Physician arrived 14:23:55 --------ALL STOP TIME OUT------ 14:23:58 Final Timeout: patient, procedure, and site verified with staff and physician. All members of the team are in agreement. 14:24:02 Right Arm site verified by team. 14:24:16 Sedation plan: Local Anesthetic Medication:Lidocaine 14:25:52 Procedure started. 14:25:56 Local anesthetic to right arm with Lidocaine 1% by Clarence Bocanegra MD.INITIAL ACCESS ONLY 14:39:51 PICC line was trimmed to 40cm and advanced to the superior vena cava.Position verified under fluoroscopy. 14:40:05 Procedure ended.(Physican Out) 14:41:41 Fluoroscopy time 00.60 minutes. 14:41:50 Fluoroscopy dose: 2 mGy 14:41:50 Flurop Dose total: 2 14:42:17 picc line stat locked in and opsited 14:42:21 Report given to Med/Surg. 14:42:45 Patient transfered to Med/Surg with Bed. Device Usage Item Name Manufacture Quantity Catalog Hospital Part Current Minimal Lot# / Number Charge Number Stock Stock Serial# Code Bag Decanter Microtek 1 [id number] (2002S) [employer] Sterile Cardinal 1 [id number] 5 Angiographic Health Pack Tegaderm 4 x 3M 1 [id number] 4 (1626W) [facility] 1 [id number] 5 5Fr double lumen catheter Signature [place] Stage Time Signature Unsigned Intra-Procedure 03/07/2020 Rufina Hicks 2:45:06 PM S[place] [id number] [place] [id number]
[2020-03-04 17:42] LABS: BASOPHILS 0.4 % (0-2); EOSINOPHILS 1.8 % (0-7); HEMATOCRIT 40.3 % (36.0-48.0); HEMOGLOBIN 12.8 g/dL (12-16); IMMATURE GRANULOCYTES 0.4 % (0-5); LYMPHOCYTES 6.2 % (15-50); MCH 26.3 pg (26.0-34.0); MCHC 31.8 g/dL (31.0-37.0); MCV 82.8 fL (80.0-100.0); MEAN PLATELET VOLUME 8.8 fL (7.4-10.4); MONOCYTES 2.6 % (2-11); NEUTROPHILS 88.6 % (40-80); RBC 4.87 10x6/uL (4.00-5.40); RDW 15.2 % (11.5-14.5); WBC 12.7 10x3/uL (4.8-10.8)
[2020-03-04] MEDS ORDERED: HYDROCODON-ACE1 EA10 PO (17:42)
[2020-03-04 17:46] LABS: PLATELET COUNT 427 10x3/uL (130-400)
[2020-03-04] MEDS ORDERED: OMEPRAZOLE20 M1 PO (17:47)
--- NOTE | 2020-03-04 17:49 | NUR ---
PT HAS THRUSH.
--- NOTE | 2020-03-04 17:52 | NUR ---
BLOOD TO LAB
--- NOTE | 2020-03-04 17:52 | NUR ---
PT USES 4L OXYGEN AT HOME
--- NOTE | 2020-03-04 17:52 | NUR ---
RESPIRATORY CALLED FOR INHALER
[2020-03-04 17:58] LABS: APTT 26.5 SECONDS (22.8-39.4); PROTIME 13.2 SECONDS (11.6-15.0)
[2020-03-04 18:17] LABS: ALBUMIN 2.2 g/dL (3.4-5.0); ALKALINE PHOSPHATASE 139 U/L (30-120); ALT (SGPT) 34 U/L (10-68); BILIRUBIN - TOTAL 0.33 mg/dL (0.2-1.3); CALCIUM 9.1 mg/dL (8.5-10.1); CARBON DIOXIDE 31.8 mmol/L (21.0-32.0); CKMB 1.7 U/L (0.0-3.6); CREATINE KINASE 160 UL (21-215); CREATININE - SERUM 1.4 mg/dL (0.6-1.3); POTASSIUM - SERUM 4.7 mmol/L (3.5-5.1); PRO BNP 8167 pg/mL (0-125); PROTEIN - SERUM 7.2 g/dL (6.4-8.2); UREA NITROGEN 28 mg/dL (7-18); eGFR NON AFRICAN AMERICAN 41 mL/min (90-120)
[2020-03-04 18:31] LABS: CALC OSMOLALITY 266 mosm/kg (275-300)
[2020-03-04 18:36] LABS: GLUCOSE 515 mg/dL (74-106)
[2020-03-04 18:37] LABS: CHLORIDE - SERUM 83 mmol/L (98-107); SODIUM 118 mmol/L (136-145)
--- NOTE | 2020-03-04 19:00 | NUR ---
SHIFT REPORT TO SANCHEZ SANCHEZ.
--- NOTE | 2020-03-04 19:00 | NUR ---
NS 0.9% INFUSING AT 555 ML/H. 500 ML REMAINING AT SHIFT CHANGE.
--- NOTE | 2020-03-04 19:02 | NUR ---
PT TOOK TYLENOL 650 MG AT 1400.
--- NOTE | 2020-03-04 19:15 | NUR ---
PT RESTING IN BED. SHE REPORTS HAVING 1 EPISODE OF DIARRHEA. DENIES N/V. SHE IS AWARE THAT SHE SHOULD NOT EAT OR DRINK AFTER MIDNIGHT FOR THORACENTESIS TOMORROW. SHE DENIES NEEDS AT THIS TIME. BED LOW, CALL LIGHT WITHIN REACH.
[2020-03-04 19:51] VITALS: BP 112/75
--- NOTE | 2020-03-04 20:45 | NUR ---
TIFFANIE YATES SENT TO THE LAB
[2020-03-04] MEDS ORDERED: NYSTATIN100000 UN4 PO (23:24)
[2020-03-04 23:32] VITALS: BP 103/67; BMI 21.9
[2020-03-05 00:45] LABS: CKMB 1.5 U/L (0.0-3.6); CREATINE KINASE 125 UL (21-215); TROPONIN-I 0.074 ng/mL (0.000-0.060)
[2020-03-05 04:00] VITALS: BP 101/69
[2020-03-05 06:42] LABS: CKMB 1.5 U/L (0.0-3.6); CREATINE KINASE 103 UL (21-215); TROPONIN-I 0.054 ng/mL (0.000-0.060)
--- NOTE | 2020-03-05 07:22 | NUR ---
PT RECEIVED ASLEEP BUT EASILY AROUSED. OXYGEN AT 4LNC, HOME DOSE. IV INFUSING.
[2020-03-05 07:53] VITALS: BP 122/84
[2020-03-05 10:46] VITALS: BP 122/80
[2020-03-05 12:56] VITALS: Ht 162.6 cm; Wt 58.0 kg
--- NOTE | 2020-03-05 13:13 | HP ---
PATIENT: TYRA MARTINEZ MEDICAL RECORD: [id number] ACCOUNT: [id number] LOCATION:[address] : 58 ADMISSION DATE: 03/04/20 PCP: HARISH VO MD HISTORY AND PHYSICAL EXAMINATION REASON FOR ADMISSION: Blood sugar of 600 and cough with fever. HISTORY OF PRESENT ILLNESS: The patient is a 59-year-old female with history of stage IV malignant neoplasm of the breast, ER status positive, NH status positive, HER-2 gene amplification FISH negative. HER gene protein overexpression. The patient has been on tamoxifen for some time and most recently had been switched to Piqray daily. She has been on that for 2-1/[address] Tovar' direction. Notes her blood sugars were up over 300 yesterday and then went to 600 and was directed to the hospital. She also developed fever yesterday. She has had a chronic cough, has gotten progressively worse over the last several weeks. She also developed oral mouth ulcers due to her current chemotherapy. She was hospitalized for atypical pneumonia. COVID negative, 01/18. Had a bronchoscopy showing inflamed mucosa, cultures were negative after 7 days of IV antibiotics. She has had poor appetite, continued weight loss. She denies headache, visual change. She denies loss of sense of taste or smell. She denies diarrhea, nausea or vomiting. She presented to the ED and had an O2 sat of 92% on room air. COVID testing is currently pending. She was given IV insulin. Her lactic acid was elevated at 3.1. Serum ketones were negative. PAST HISTORY: Breast cancer as above. Currently on Piqray therapy. History of hepatitis C post-interferon therapy, in remission. 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 PAST SURGICAL HISTORY: LAURA-BSO 2015, with cystocele and rectocele repair, bilateral mastectomy in 2003 with reconstructive breast implants. Tonsillectomy, cervical spine fusion. FAMILY HISTORY: Father with amyloid and COPD. Mother with breast cancer. SOCIAL HISTORY: , retired RN, working in . Had retired due to health reasons. CURRENT MEDICATIONS: Nystatin swish and swallow 5 cc p.c. and at bedtime, albuterol inhaler 2 puffs 4 times daily, [place] 10 one t.i.d. for back pain, omeprazole 20 mg a day, Zofran 8 mg q.4-6 hours p.r.n. nausea or vomiting, Piqray 300 mg p.o. daily just discontinued. ALLERGIES: MORPHINE. REVIEW OF SYSTEMS: GENERAL: Fatigued for several months, worse most recently. HEENT: No recent visual change, sinus congestion. She has had tenderness to her tongue and lips due to oral ulcers from Piqray therapy. CARDIAC: No palpitations or exertional chest pain. RESPIRATORY: She has had chronic cough, followed by Dr. Silverman and myself. She has been using Proventil inhaler p.r.n. She has had no sputum production. Cough is worse for the last 2 days. GASTROINTESTINAL: No nausea, vomiting, diarrhea, change in stools or blood per HISTORY AND PHYSICAL [id number] TYRA MARTINEZ rectum. GYNECOLOGIC: No vaginal bleeding. ENDOCRINE: Denies polyuria, polydipsia, heat or cold intolerance. NEUROLOGIC: No history of headache, seizures, motor or sensory deficits currently. Denies tremors. INTEGUMENT: She has had a rash on her forehead and abdomen from Piqray therapy. It is mildly pruritic. PSYCHIATRIC: Denies depressed mood. PHYSICAL EXAMINATION: VITAL SIGNS: Temperature 98.1, pulse 104 and regular, respirations 19, blood pressure 103/67, with a sat of 93% on 4 liters, 92% on room air. GENERAL: The patient is chronically cachectic appearing, but alert. She has recurrent cough. HEENT: Eyes are clear. Oropharynx shows some white shallow ulcers on her tongue and buccal mucosa. NECK: No adenopathy. CHEST: She has distant breath sounds with faint wheeze in the upper lobes on forced expiration. HEART: Regular rate and rhythm. BREASTS: Show implants. ABDOMEN: Soft, nontender, no organomegaly. PELVIC: Deferred. EXTREMITIES: No CC&E. SKIN: Shows a faint macular pink rash on her abdomen and upper forehead. NEUROLOGICAL: Intact. Gait was not tested. LABORATORY DATA: White count 12.7, H&H of 12.8 and 40.3, 88.6% neutrophils. Blood sugars over 500 on admission, is now 326 post-insulin therapy. ABG showed a pH of 7.45, pO2 of 51, pCO2 of 38. Sodium of 117, glucose of 560. INR is 1. Urinalysis is pending. Serum ketones are negative. SARS-CoV-2 RNA test is pending. DIAGNOSTIC STUDIES: Chest x-ray shows patchy interstitial airspace opacities in both lungs with moderate right and left pleural effusions. ASSESSMENT: 1. Hyperglycemia, most likely due to Piqray therapy. 2. Fever with yenqj-zc-tzxlhut cough and interstitial pneumonia versus congestive heart failure pattern. Troponin bumped to 0.074 initially and followup down to 0.05 with normal CPK-MB, possibly due to tachycardia and stress ischemia. BUN and creatinine are 28 and 1.4, indicating prerenal azotemia. CRP elevated at 6.4. ProBNP is 8167. CA 27-29 is 67.4. CEA 14.1 as of December of this year. PLAN: The patient will be admitted for COVID rule out, she will be placed on IV antibiotics, supplemental O2, Proventil inhalers. Avoid updrafts currently. Sliding scale insulin. Hold Piqray at this time. Check echocardiogram. She has cardiology, pulmonary and oncology consults placed. TRANSINT:[id number] Voice Confirmation ID: [id number] DOCUMENT ID: [id number] HISTORY AND PHYSICAL [id number] TYRA MARTINEZ TIMOTHY MD at 1313 CC: [id number] DICTATION DATE: 03/05/20804 HEALTH ADVISOR: 03/05/20 1058 ADM IN [place] [id number] [place] [address]
[2020-03-05 13:29] LABS: ANION GAP 12.7 mmol/L (8-16); CALCIUM 7.8 mg/dL (8.5-10.1); CARBON DIOXIDE 27.9 mmol/L (21.0-32.0); POTASSIUM - SERUM 4.6 mmol/L (3.5-5.1)
[2020-03-05 13:30] LABS: CREATININE - SERUM 0.9 mg/dL (0.6-1.3)
[2020-03-05 13:45] LABS: CKMB 1.8 U/L (0.0-3.6); CREATINE KINASE 95 UL (21-215); TROPONIN-I 0.025 ng/mL (0.000-0.060)
[2020-03-05 17:05] LABS: BILIRUBIN NEGATIVE (NEGATIVE); GLUCOSE 100 mg/dL (NEGATIVE); KETONE NEGATIVE (NEGATIVE); NITRITE NEGATIVE (NEGATIVE); UROBILINOGEN NORMAL (NORMAL)
[2020-03-05 20:00] VITALS: BP 121/85
[2020-03-06] VITALS: BP 106/70
[2020-03-06 04:00] VITALS: BP 105/73
[2020-03-06 05:10] LABS: BASOPHILS 0.4 % (0-2); EOSINOPHILS 0.1 % (0-7); HEMATOCRIT 32.5 % (36.0-48.0); HEMOGLOBIN 10.3 g/dL (12-16); IMMATURE GRANULOCYTES 0.3 % (0-5); LYMPHOCYTES 8.4 % (15-50); MCH 26.1 pg (26.0-34.0); MCHC 31.7 g/dL (31.0-37.0); MCV 82.3 fL (80.0-100.0); MEAN PLATELET VOLUME 8.9 fL (7.4-10.4); MONOCYTES 4.4 % (2-11); NEUTROPHILS 86.4 % (40-80); PLATELET COUNT 408 10x3/uL (130-400); RBC 3.95 10x6/uL (4.00-5.40); RDW 14.8 % (11.5-14.5); WBC 11.7 10x3/uL (4.8-10.8)
[2020-03-06 05:28] LABS: APTT 25.3 SECONDS (22.8-39.4); PROTIME 13.2 SECONDS (11.6-15.0)
[2020-03-06 05:40] LABS: ANION GAP 9.6 mmol/L (8-16); CARBON DIOXIDE 31.4 mmol/L (21.0-32.0); CREATININE - SERUM 0.9 mg/dL (0.6-1.3); PROTEIN - SERUM 5.9 g/dL (6.4-8.2)
--- NOTE | 2020-03-06 07:44 | NUR ---
PHARMACY CALLED AND INFORMED ME THAT THEY DID NOT HAVE CHEMO THAT DR FREDERICK HAD ORDERED FOR PATIENT AND WOULD HAVE IT TOMORROW. DR FREDERICK CALLED AND HE STATED TOMORROW WOULD BE FINE. I CALLED PHARMACY AND TOLD THEM AND THEY ARE ORDERING CHEMO TO BE GIVEN TOMORROW.
[2020-03-06 09:11] VITALS: BP 102/70
[2020-03-06 12:04] VITALS: BP 100/63
[2020-03-06] MEDS ORDERED: VOLTAREN75 MG PO (14:36)
[2020-03-06] MEDS ORDERED: MUCINEX600 MG PO (14:37)
[2020-03-06] MEDS ORDERED: LASIX40 MG PO (14:38)
[2020-03-06] MEDS ORDERED: GLUCOPHAGE500 MG PO (14:38)
[2020-03-06] MEDS ORDERED: SINGULAIR10 MG PO (14:39)
[2020-03-06] MEDS ORDERED: UROCIT-K10 MEQ (14:40)
[2020-03-06] MEDS ORDERED: TRAZODONE HCL150 MG (14:41)
[2020-03-06] MEDS ORDERED: SYMBICORT 16010.2 GM INH (14:41)
[2020-03-06] MEDS ORDERED: TRESIBA FL100 UNIT/1 SC (14:42)
[2020-03-06] MEDS ORDERED: NASONEX NASAL S17 GM NASAL (14:43)
[2020-03-06] MEDS ORDERED: HUMALOG 30100 UNITS/ SC (14:44)
[2020-03-06] MEDS ORDERED: SORINE80 MG PO (14:47)
[2020-03-06 14:50] VITALS: BP 104/52
[2020-03-06 16:57] VITALS: BP 119/80
[2020-03-06 17:14] LABS: PROTEIN - BODY FLUID 4.1 G/DL
[2020-03-06 17:51] LABS: MACROPHAGES BF 44 %; NEUT - BF 13 %
--- NOTE | 2020-03-06 19:32 | NUR ---
ATTEMPTS X2 TO RESTART IV UNSUCESSFUL. WILL GIVE REPORT TO MS AND THE NEED TO HAVE IV STATRED. ALERT AND ORIETNED X4. UP AD ISMAEL. SON AT BEDSIDE.DENIES ANY NEEDS AT THIS TIME.
[2020-03-07] VITALS: BP 100/64
[2020-03-07 04:00] VITALS: BP 103/68
--- NOTE | 2020-03-07 07:30 | NUR ---
LYING IN BED,WITHOUT DISTRESS.FAMILY AT BEDSIDE.CALL LIGHT IN REACH
--- NOTE | 2020-03-07 09:39 | NUR ---
ASSESSMENT PER FLOW SHEET. PATIENT IS WITHOUT DISTRESS.CALL LIGHT IN REACH
[2020-03-07 09:49] VITALS: BP 106/70
[2020-03-07 13:58] VITALS: BP 106/70
--- NOTE | 2020-03-07 16:07 | NUR ---
PRE MEDS FOR CHEMO INFUSING AFTER PICC PLACEMENT. PATIENT SAYS 0/10 PAIN AT PRESENT.MONITOR
--- NOTE | 2020-03-07 16:24 | NUR ---
CHEMO ORDERED AFTER PREMEDS. BLOOD RETURN CONFIRNED VIA PICC LINE.
[2020-03-07 18:04] VITALS: BP 104/74
--- NOTE | 2020-03-07 18:11 | NUR ---
CHEMO COMPLETE. PATIENT REMAINS WITHOUT REACTIONS.
--- NOTE | 2020-03-07 19:15 | NUR ---
SITTING UP IN BED. ALERT AND ORIENTED X4. STATES SHE JUST FINISHED HER CHEMO FOR THE DAY. RESP EVEN AND NONLABORED. O2 @ 4L/NC. NONPROD COUGH NOTED. RATES PAIN IN BACK AND HIPS 3. DSRG NOTED TO BACK. SALINE LOCK NOTED TO LT FOREARM. PICC NOTED TO RT UPPER ARM IS SALINE LOCKED. FAMILY AT BEDSIDE. PT IS AMBULATORY. SR ELEVATED X2. CL IN REACH.
--- NOTE | 2020-03-07 20:10 | NUR ---
C/O NAUSEA. MEDICATED WITH ZOFRAN AT THIS TIME.
[2020-03-07 20:56] VITALS: BP 107/69
--- NOTE | 2020-03-07 21:24 | NUR ---
AWAKENED FOR NIGHT TIME MEDS. NO VOMITING NOTED FROM EARLIER, JUST NAUSEA. CL IN REACH.
--- NOTE | 2020-03-07 23:31 | NUR ---
RESTING QUIETLY. RESP NONLABORED. NO DISTRESS. CL IN REACH.
[2020-03-08 00:01] VITALS: BP 92/57
[2020-03-08 06:46] LABS: BASOPHILS 0.2 % (0-2); EOSINOPHILS 7.2 % (0-7); HEMATOCRIT 31.6 % (36.0-48.0); HEMOGLOBIN 9.7 g/dL (12-16); IMMATURE GRANULOCYTES 1.3 % (0-5); LYMPHOCYTES 16.8 % (15-50); MCH 25.8 pg (26.0-34.0); MCHC 30.7 g/dL (31.0-37.0); MONOCYTES 7.6 % (2-11); NEUTROPHILS 66.9 % (40-80); PLATELET COUNT 368 10x3/uL (130-400); RBC 3.76 10x6/uL (4.00-5.40); RDW 15.3 % (11.5-14.5); WBC 5.3 10x3/uL (4.8-10.8)
[2020-03-08 07:06] LABS: CALC OSMOLALITY 269 mosm/kg (275-300); CALCIUM 7.3 mg/dL (8.5-10.1); CARBON DIOXIDE 33.6 mmol/L (21.0-32.0); CHLORIDE - SERUM 100 mmol/L (98-107); CREATININE - SERUM 0.7 mg/dL (0.6-1.3); POTASSIUM - SERUM 3.8 mmol/L (3.5-5.1); SODIUM 135 mmol/L (136-145); UREA NITROGEN 14 mg/dL (7-18); eGFR NON AFRICAN AMERICAN 90 mL/min (90-120)
[2020-03-08 07:07] LABS: GLUCOSE 89 mg/dL (74-106)
--- NOTE | 2020-03-08 08:14 | NUR ---
SPOKE WITH ANN-MARIE IN LAB. FLUID RECIEVED FROM IR ON 03/06/20 IS BEING WORKED UP FOR CYTOLOGY.
[2020-03-08 08:43] VITALS: BP 103/64
[2020-03-08 11:08] LABS: ACID FAST SMEAR Negative (()); AFB SPECIMEN PROCESSING Concentration (())
--- NOTE | 2020-03-08 11:38 | NUR ---
ASSESSMENT PER FLOW SHEET. PATIENT IS WITHOUT DISTRESS.SHE DENIES PAIN.CALL LIGHT IN REACH
[2020-03-08 13:17] VITALS: BP 95/58
[2020-03-08 18:52] VITALS: BP 106/66
--- NOTE | 2020-03-08 19:15 | NUR ---
SITTING UP IN BED. ALERT AND ORIENTED X4. C/O PAIN IN HIPS AND BACK RATING 5. HAS SCHEDULED NORCO. NONPROD COUGH NOTED. O2 @ 3.5L/NC. AMBULATORY. STATES SHE HAD DIARRHEA TODAY. SALINE LOCK NOTED TO LT WRIST. RT UPPER ARM PICC IS SALINE LOCKED. SR ELEVATED X2. CL IN REACH.
[2020-03-08 22:01] VITALS: BP 115/80
--- NOTE | 2020-03-09 02:28 | NUR ---
LYING IN BED WITH EYES CLOSED. RESP NONLABORED. NO DISTRESS. CL IN REACH.
[2020-03-09 03:55] VITALS: BP 97/62
--- NOTE | 2020-03-09 05:50 | NUR ---
RESTED WELL TONIGHT. NO DISTRESS. FAMILY AT BEDSIDE. SR ELEVATED X2. CL IN REACH.
[2020-03-09 09:10] VITALS: BP 113/73
[2020-03-09 11:54] VITALS: BP 102/66
[2020-03-09 14:09] LABS: FUNGUS STAIN Final report (())
--- NOTE | 2020-03-09 15:09 | NUR ---
Nutrition follow-up: Pt receiving a consistent CHO diet PO intake ~45% average of last 6 meals; pt is drinking some Glucerna Shake Pt has had some nausea with chemotherapy treatments PICC line Labs reviewed Wt: 128# Will continue to provide food choices and honor food preferences. RDN following.
[2020-03-09 16:22] VITALS: BP 135/82
--- NOTE | 2020-03-09 19:34 | NUR ---
PATIENT IN BED WITH IV INTACT. NO COMPLAINTS OR SIGNS OF DISTRESS. PICC LINE INTACT. RECIEVED ZOFRAN. ROCEPHIN INFUSING. AZITHROMYCIN TO FOLLOW. CALL LIGHT WITHIN REACH. FAMILY AT BEDSIDE.
[2020-03-09 20:00] VITALS: BP 124/80
[2020-03-10] VITALS: BP 96/56
--- NOTE | 2020-03-10 02:14 | NUR ---
REC' CHGE OF SHIFT WALKING ROUNDS IN BED FAMILY AT BEDSIDE STATES FEELS SOME AFTER DRINKING ENSURE.NO NAUSEA OR VOMITTING RACHELL WELL.WILL CONTINUE TO MONITOR FOR ANY CHGES AND FOLLOW CURRENT PLAN OF CARE.
[2020-03-10 04:00] VITALS: BP 99/61
[2020-03-10 07:38] LABS: HEMATOCRIT 28.4 % (36.0-48.0); HEMOGLOBIN 8.9 g/dL (12-16); MCH 25.7 pg (26.0-34.0); MCHC 31.3 g/dL (31.0-37.0); MCV 82.1 fL (80.0-100.0); PLATELET COUNT 301 10x3/uL (130-400); RBC 3.46 10x6/uL (4.00-5.40); RDW 15.9 % (11.5-14.5); WBC 26.7 10x3/uL (4.8-10.8)
[2020-03-10 07:46] LABS: CALC OSMOLALITY 271 mosm/kg (275-300); CALCIUM 7.7 mg/dL (8.5-10.1); CARBON DIOXIDE 29.6 mmol/L (21.0-32.0); CHLORIDE - SERUM 102 mmol/L (98-107); GLUCOSE 108 mg/dL (74-106); SODIUM 136 mmol/L (136-145); UREA NITROGEN 11 mg/dL (7-18)
[2020-03-10 07:50] LABS: CREATININE - SERUM 0.5 mg/dL (0.6-1.3); POTASSIUM - SERUM 4.4 mmol/L (3.5-5.1); eGFR NON AFRICAN AMERICAN > 90 mL/min (90-120)
[2020-03-10 08:00] VITALS: BP 113/75
[2020-03-10 08:16] LABS: EOSINOPHILS 6 % (0-7); LYMPHOCYTES 4 % (15-50); MONOCYTES 1 % (2-11); NEUTROPHILS 75 % (40-80); PLATELET ESTIMATE NORMAL
[2020-03-10 13:31] VITALS: BP 101/74
--- NOTE | 2020-03-10 14:03 | MORECARE ---
CASE MANAGEMENT DISCHARGE SUMMARY PATIENT: TYRA MARTINEZ UNIT: [id number] ADM DATE: 03/04/20 AGE: 59 : 58 SEX: F ROOM/BED: D.2207 AUTHOR: MICHAEL BOYD PHYSICIAN: REFERRING PHYSICIAN: CAYLA TY MD DATE OF SERVICE: 03/10/20 Discharge Plan Patient Name: TYRA MARTINEZ [facility] [facility] 1960 Planned Disposition: Home or Self Care Anticipated Discharge Date: Discharge Date: Expected LOS: Initial Reviewer: [email or web address] Initial Review Date: 03/04/2020 Generated: 03/10/20 3:03 pm DCPIA - Discharge Planning Initial Assessment Updated by [email or web address]: Salena Perry on 03/10/20 2:02 pm * Is the patient Alert and Oriented? Yes * PCP LAO * Pharmacy [facility] [address] * Preadmission Environment Home with Family * ADLs Independent * Equipment None * List name and contact numbers for known caregivers / representatives who currently or will assist patient after discharge: UNA HERNANDEZ (SON) [phone] RIVERA MARTINEZ (SON) [phone] * Verbal permission to speak to the caregivers and representatives has been obtained from the patient. N/A * Community resources currently utilized None * Additional services required to return to the preadmission environment? No * Can the patient safely return to the preadmission environment? Yes * Has this patient been hospitalized within the prior 30 days at any hospital? No Patient Name: TYRA MARTINEZ Page [phone] at 1403 All edits/amendments must be made on the electronic document DICTATION DATE: 03/10/20 1403 THREAD WEAVER: LUZ 03/10/20 1403 RPT#: [id number] DC DATE: STATUS: ADM IN [facility] [address] [place] [address] END OF REPORT
[2020-03-10 16:46] VITALS: BP 112/76
--- NOTE | 2020-03-10 18:17 | NUR ---
PATIENT IN BED WITH IV INTACT. NO COMPLAINTS OR SIGNS OF DISTRESS. FAMILY AT BEDSIDE. CALL LIGHT WITHIN REACH.
[2020-03-10 20:00] VITALS: BP 100/64
[2020-03-11 04:00] VITALS: BP 107/52
--- NOTE | 2020-03-11 07:22 | NUR ---
I have reviewed this patient and I concur with the Shift Assessment completed by the Licensed Practical Nurse today this shift.
[2020-03-11 09:54] LABS: BASOPHILS 2.7 % (0-2); EOSINOPHILS 5.6 % (0-7); HEMATOCRIT 28.7 % (36.0-48.0); HEMOGLOBIN 9.1 g/dL (12-16); IMMATURE GRANULOCYTES 3.2 % (0-5); MCH 26.1 pg (26.0-34.0); MCHC 31.7 g/dL (31.0-37.0); MCV 82.2 fL (80.0-100.0); MEAN PLATELET VOLUME 8.7 fL (7.4-10.4); MONOCYTES 2.7 % (2-11); NEUTROPHILS 79.8 % (40-80); PLATELET COUNT 281 10x3/uL (130-400); RBC 3.49 10x6/uL (4.00-5.40); RDW 16.1 % (11.5-14.5)
[2020-03-11 09:56] LABS: WBC 10.7 10x3/uL (4.8-10.8)
[2020-03-11 10:09] VITALS: BP 101/61
[2020-03-11 10:09] LABS: ALBUMIN 1.8 g/dL (3.4-5.0); ALKALINE PHOSPHATASE 134 U/L (30-120); ALT (SGPT) 49 U/L (10-68); BILIRUBIN - TOTAL 0.31 mg/dL (0.2-1.3); CALC OSMOLALITY 272 mosm/kg (275-300); CALCIUM 8.2 mg/dL (8.5-10.1); CARBON DIOXIDE 30.5 mmol/L (21.0-32.0); CHLORIDE - SERUM 99 mmol/L (98-107); CREATININE - SERUM 0.6 mg/dL (0.6-1.3); GLUCOSE 127 mg/dL (74-106); POTASSIUM - SERUM 4.2 mmol/L (3.5-5.1); PROTEIN - SERUM 5.6 g/dL (6.4-8.2); SODIUM 136 mmol/L (136-145); UREA NITROGEN 9 mg/dL (7-18); eGFR NON AFRICAN AMERICAN > 90 mL/min (90-120)
[2020-03-11 13:36] VITALS: BP 197/64
[2020-03-11 18:41] VITALS: BP 107/55
[2020-03-11 20:00] VITALS: BP 103/66
[2020-03-12 04:00] VITALS: BP 163/95
[2020-03-12 07:20] LABS: CALC OSMOLALITY 263 mosm/kg (275-300); CALCIUM 8.3 mg/dL (8.5-10.1); CARBON DIOXIDE 27.9 mmol/L (21.0-32.0); CHLORIDE - SERUM 96 mmol/L (98-107); CREATININE - SERUM 0.6 mg/dL (0.6-1.3); GLUCOSE 131 mg/dL (74-106); POTASSIUM - SERUM 4.1 mmol/L (3.5-5.1); SODIUM 131 mmol/L (136-145); UREA NITROGEN 10 mg/dL (7-18); eGFR NON AFRICAN AMERICAN > 90 mL/min (90-120)
[2020-03-12 07:21] LABS: BASOPHILS 2.9 % (0-2); EOSINOPHILS 4.9 % (0-7); HEMATOCRIT 26.8 % (36.0-48.0); HEMOGLOBIN 8.4 g/dL (12-16); IMMATURE GRANULOCYTES 1.7 % (0-5); LYMPHOCYTES 10.8 % (15-50); MCH 25.5 pg (26.0-34.0); MCHC 31.3 g/dL (31.0-37.0); MCV 81.5 fL (80.0-100.0); MEAN PLATELET VOLUME 9.5 fL (7.4-10.4); MONOCYTES 7.2 % (2-11); NEUTROPHILS 72.5 % (40-80); PLATELET COUNT 302 10x3/uL (130-400); RBC 3.29 10x6/uL (4.00-5.40); RDW 16.3 % (11.5-14.5)
[2020-03-12 07:24] LABS: WBC 6.5 10x3/uL (4.8-10.8)
--- NOTE | 2020-03-12 08:00 | NUR ---
LYING IN BED,WITHOUT DISTRESS.CALL LIGHT IN REACH
[2020-03-12 10:13] VITALS: BP 123/82
[2020-03-12 14:47] VITALS: BP 103/68
--- NOTE | 2020-03-12 18:37 | NUR ---
SITTING UP IN BED, JUST GOT OUT OF SHOWER. NO C/O PAIN. NO S/S OF ACUTE DISTRESS NOTED. FAMILY AT BEDSIDE. DENIES ANY NEEDS AT THIS TIME. CALL LIGHT IN REACH. WILL CONTINUE TO MONITOR.
[2020-03-12 18:44] VITALS: BP 150/69
[2020-03-12 20:00] VITALS: BP 129/82
--- NOTE | 2020-03-12 20:00 | NUR ---
PATIENT RESTING IN BED WITH SON AT BEDSIDE. NO S/S OF ACUTE DISTRESS. NO C/O AT THIS TIME. PATIENT HAS RIGHT PICC, NORMAL SALINE @ KVO. IV IS PATENT WITHOUT REDNESS, SWELLING, OR TENDERNESS. PATIENT IS UP AD ISMAEL. CALL LIGHT WITHIN REACH. WILL CONTINUE TO MONITOR.
[2020-03-13 04:00] VITALS: BP 109/71
--- NOTE | 2020-03-13 05:16 | NUR ---
I have reviewed this patient and I concur with the Shift Assessment completed by the Licensed Practical Nurse today this shift.
[2020-03-13 07:27] LABS: CALC OSMOLALITY 266 mosm/kg (275-300); CALCIUM 7.8 mg/dL (8.5-10.1); CHLORIDE - SERUM 98 mmol/L (98-107); CREATININE - SERUM 0.5 mg/dL (0.6-1.3); GLUCOSE 104 mg/dL (74-106); POTASSIUM - SERUM 4.1 mmol/L (3.5-5.1); SODIUM 134 mmol/L (136-145); UREA NITROGEN 11 mg/dL (7-18); eGFR NON AFRICAN AMERICAN > 90 mL/min (90-120)
[2020-03-13 07:35] LABS: BASOPHILS 0.9 % (0-2); EOSINOPHILS 2.8 % (0-7); HEMATOCRIT 26.4 % (36.0-48.0); IMMATURE GRANULOCYTES 2.6 % (0-5); LYMPHOCYTES 9.2 % (15-50); MCHC 30.3 g/dL (31.0-37.0); MCV 82.5 fL (80.0-100.0); MEAN PLATELET VOLUME 9.5 fL (7.4-10.4); NEUTROPHILS 72.5 % (40-80); PLATELET COUNT 312 10x3/uL (130-400); RDW 16.4 % (11.5-14.5)
[2020-03-13 07:41] LABS: WBC 8.6 10x3/uL (4.8-10.8)
[2020-03-13 10:59] VITALS: BP 104/68
[2020-03-13 11:02] VITALS: BP 104/68
[2020-03-13 13:02] VITALS: BP 107/70
[2020-03-13 17:08] VITALS: BP 110/71
[2020-03-13 20:00] VITALS: BP 134/82
--- NOTE | 2020-03-13 20:00 | NUR ---
PATIENT RESTING IN BED WITH SON AT BEDSIDE. NO S/S OF ACUTE DISTRESS. NO C/O AT THIS TIME. CALL LIGHT WITHIN REACH. WILL CONTINUE TO MONITOR.
--- NOTE | 2020-03-14 05:00 | NUR ---
I have reviewed this patient and I concur with the Shift Assessment completed by the Licensed Practical Nurse today this shift.
[2020-03-14 07:17] LABS: BASOPHILS 0.7 % (0-2); HEMATOCRIT 25.7 % (36.0-48.0); HEMOGLOBIN 7.9 g/dL (12-16); IMMATURE GRANULOCYTES 5.9 % (0-5); LYMPHOCYTES 11.5 % (15-50); MCH 25.4 pg (26.0-34.0); MCHC 30.7 g/dL (31.0-37.0); MCV 82.6 fL (80.0-100.0); MONOCYTES 16.5 % (2-11); NEUTROPHILS 63.4 % (40-80); PLATELET COUNT 319 10x3/uL (130-400); RBC 3.11 10x6/uL (4.00-5.40); RDW 16.6 % (11.5-14.5); WBC 5.9 10x3/uL (4.8-10.8)
[2020-03-14 07:20] LABS: CALC OSMOLALITY 263 mosm/kg (275-300); CALCIUM 7.9 mg/dL (8.5-10.1); CARBON DIOXIDE 26.3 mmol/L (21.0-32.0); CHLORIDE - SERUM 93 mmol/L (98-107); CREATININE - SERUM 0.5 mg/dL (0.6-1.3); GLUCOSE 101 mg/dL (74-106); SODIUM 133 mmol/L (136-145); eGFR NON AFRICAN AMERICAN > 90 mL/min (90-120)
[2020-03-14 07:48] LABS: UREA NITROGEN 8 mg/dL (7-18)
--- NOTE | 2020-03-14 08:25 | NUR ---
RESTING IN BED, NO DISTRESS NOTED, FAMILY IN ROOM, MONITOR SUGARS AND ELECTROLYTES
[2020-03-14 09:57] VITALS: BP 114/77
[2020-03-14 10:02] LABS: APTT 35.4 SECONDS (22.8-39.4); INR 1.08 (0.85-1.17)
[2020-03-14 14:09] VITALS: BP 119/79
[2020-03-14 17:04] VITALS: BP 123/87
--- NOTE | 2020-03-14 19:00 | NUR ---
PATIENT ALERT AND ORIENTED X 4. PATIENT MOTHER AT BEDSIDE. PATIENT HAS RIGHT UPPER ARM PICC LINE THAT IS PATENT AND INFUSING NS AT 30 PER ORDER. PATIENT FINISHING BREATHING TREATMENT. ASSESSMENT COMPLETE, SEE CHART. DENIES FURTHER NEEDS AT THIS TIME. CALL LIGHT CLOSE. CPOC.
[2020-03-14 21:00] VITALS: BP 121/81
--- NOTE | 2020-03-14 21:10 | NUR ---
ADMINISTERED HS MEDICATIONS PER ORDER. PATIENT WORRIED ABOUT "REDNESS AND REACTIONS". PATIENT ASKS IF IT IS STEROIDS OR TREATMENTS, ENCOURAGED PATIENT TO SPEAK WITH DOCTOR ABOUT MEDICATIONS. PROVIDED BENADRYL PRN. DENIES FURTHER NEEDS AT THIS TIME. CALL LIGHT CLOSE. CPOC.
--- NOTE | 2020-03-15 00:43 | NUR ---
RESTING WITH NO SIGNS OR SYMPTOMS OF DISTRESS AT THIS TIME. MOTHER REMAINS AT BEDSIDE. CALL LIGHT REMAINS CLOSE. CPOC.
[2020-03-15 05:36] LABS: BASOPHILS 0.4 % (0-2); EOSINOPHILS 0 % (0-7); HEMATOCRIT 30.2 % (36.0-48.0); HEMOGLOBIN 9.1 g/dL (12-16); IMMATURE GRANULOCYTES 7.3 % (0-5); MCH 24.9 pg (26.0-34.0); MCHC 30.1 g/dL (31.0-37.0); MCV 82.7 fL (80.0-100.0); MONOCYTES 8.4 % (2-11); NEUTROPHILS 70.9 % (40-80); RBC 3.65 10x6/uL (4.00-5.40); RDW 16.6 % (11.5-14.5); WBC 7.2 10x3/uL (4.8-10.8)
[2020-03-15 05:41] LABS: PLATELET COUNT 449 10x3/uL (130-400)
[2020-03-15 05:46] LABS: APTT 35.4 SECONDS (22.8-39.4); PROTIME 13.2 SECONDS (11.6-15.0)
[2020-03-15 05:51] LABS: CALC OSMOLALITY 272 mosm/kg (275-300); CALCIUM 8.2 mg/dL (8.5-10.1); CARBON DIOXIDE 28.7 mmol/L (21.0-32.0); CHLORIDE - SERUM 99 mmol/L (98-107); CREATININE - SERUM 0.6 mg/dL (0.6-1.3); GLUCOSE 135 mg/dL (74-106); SODIUM 136 mmol/L (136-145); UREA NITROGEN 10 mg/dL (7-18); eGFR NON AFRICAN AMERICAN > 90 mL/min (90-120)
[2020-03-15 09:01] VITALS: BP 144/96
[2020-03-15 12:25] VITALS: BP 137/88
--- NOTE | 2020-03-15 13:52 | NUR ---
PT ALERT X 4. BREATH SOUNDS CLEAR BILAT. PICC LINE TO RIGHT UPPER ARM, PATENT, DRESSING CDI. PT COUGHING, ENCOURAGED TO USE INCENTIVE SPIROMETER. MOTHER AT BEDSIDE. BED LOW, CALL LIGHT IN REACH. NO OTHER NEEDS AT THIS TIME.
[2020-03-15 16:00] VITALS: BP 116/78
--- NOTE | 2020-03-15 19:00 | NUR ---
PATIENT ALERT AND ORIENTED WITH FAMILY MEMBER AT BEDSIDE. PATIENT HAS RIGHT UPPER ARM PICC THAT IS PATENT AND INFUSING PER ORDER. DRESSING CHANGED TODAY AND ADHERES TO SKIN. PATIENT DENIES PAIN AT THIS TIME. ASSESSMENT COMPELTE. PATIENT DENIES FURTHER NEEDS AT THIS TIME. CALL LIGHT REMAINS CLOSE TO PATIENT. CPOC.
[2020-03-15 20:05] VITALS: BP 117/78
--- NOTE | 2020-03-15 21:14 | NUR ---
ANSWERED PATIENT CALL LIGHT. PATIENT STATED THAT SHE IS HAVING A REACTION STILL AND DOES NOT FEEL THAT 25 MG OF BENADRYL HAS BEEN EFFECTIVE. STATES SHE HAS SPOKEN WITH DR. VO AND ASKS THAT THIS NURSE PLEASE PAGE HIM FOR ORDERS TO OBTAIN 50 MG AT AT TIME. PAGED DR. VO. RECEIVED ORDERS TO ADMINISTER 25-50MG Q6 BENADRYL FOR REACTION NEEDED. ADMINISTERED OTHER HS MEDICATIONS PER ORDER. PATIENT TOLERATED WELL. DENIES FURTHER NEEDS AT THIS TIME. CPOC.
--- NOTE | 2020-03-15 22:00 | NUR ---
PATIENT REQUESTS PHENERGAN TO BE GIVEN CLOSER TO MIDNIGHT.
--- NOTE | 2020-03-15 23:45 | NUR ---
ADMINISTERED PHENERGAN/CODIENE LATE, PER PATIENT REQUEST. PATIENT TOELRATED WELL. CALL LIGHT REMAINS CLOSE. CPOC.
[2020-03-16] VITALS: BP 110/74
[2020-03-16 04:00] VITALS: BP 112/78
[2020-03-16 05:23] LABS: CALC OSMOLALITY 269 mosm/kg (275-300); CALCIUM 7.8 mg/dL (8.5-10.1); CARBON DIOXIDE 29.9 mmol/L (21.0-32.0); CHLORIDE - SERUM 101 mmol/L (98-107); CREATININE - SERUM 0.7 mg/dL (0.6-1.3); GLUCOSE 95 mg/dL (74-106); POTASSIUM - SERUM 3.4 mmol/L (3.5-5.1); SODIUM 135 mmol/L (136-145); eGFR NON AFRICAN AMERICAN 90 mL/min (90-120)
[2020-03-16 05:24] LABS: UREA NITROGEN 13 mg/dL (7-18)
[2020-03-16 05:27] LABS: HEMATOCRIT 27.7 % (36.0-48.0); HEMOGLOBIN 8.4 g/dL (12-16); MCH 25.1 pg (26.0-34.0); MCHC 30.3 g/dL (31.0-37.0); MCV 82.9 fL (80.0-100.0); MEAN PLATELET VOLUME 9.2 fL (7.4-10.4); PLATELET COUNT 392 10x3/uL (130-400); RBC 3.34 10x6/uL (4.00-5.40); RDW 16.9 % (11.5-14.5); WBC 6.7 10x3/uL (4.8-10.8)
--- NOTE | 2020-03-16 08:05 | NUR ---
ALERT AND ORIENTED. LUNGS DIMINISHED TO BLL. HEART SOUNDS S1 AND S2 HEARD IN ALL VALENTIN. BOWEL SOUNDS ACTIVE X 4. CATRACHITA PICC PATENT WITHOUT REDNESS. DENIES NEEDS. BED LOW. CALL DICK AND PERSONAL ITEMS IN REACH. WILL CONTINUE TO MONITOR.
[2020-03-16 08:39] VITALS: BP 101/69
[2020-03-16 08:40] LABS: APTT 32.4 SECONDS (22.8-39.4); INR 1.03 (0.85-1.17); PROTIME 13.5 SECONDS (11.6-15.0)
[2020-03-16 11:42] VITALS: BP 125/77
--- NOTE | 2020-03-16 11:45 | NUR ---
PATIENT RETURNED FROM PROCEDURE. VITALS STABLE.
[2020-03-16 12:26] LABS: BASOPHILS 1 % (0-2); LYMPHOCYTES 12 % (15-50); MONOCYTES 14 % (2-11); NEUTROPHILS 66 % (40-80); PLATELET ESTIMATE NORMAL; ROULEAUX OCC
--- NOTE | 2020-03-16 15:18 | NUR ---
ADMINISTERED MEDICATION, FLUSHED LUMENS AND ADMINISTERED EYE DROPS. RESTING COMFORTABLY IN BED, FAMILY AT BEDSIDE. DR. AZEVEDO IN THE ROOM. DENIES ANY NEEDS. BED IN LOWEST POSITION, BED RAILS X2, CALL LIGHT WITHIN REACH. WILL CONTINUE TO MONITOR.
--- NOTE | 2020-03-16 16:14 | NUR ---
ADMINISTERED MEDICATION AND 4 UNITS INSULIN PER SLIDING SCALE FOR SUGAR OF 155. RESTING COMFORTABLY IN BED. DENIES ANY NEEDS. WILL CONTINUE TO MONITOR.
[2020-03-16 17:15] VITALS: BP 114/77
--- NOTE | 2020-03-16 18:12 | NUR ---
ADMINISTERED PRN BENADRYL FOR ITCHING AND REDNESS. RESTING WELL. ORDERED DINNER TRAY AND GUEST TRAY. DENIES ANY NEEDS. WILL CONTINUE TO MONITOR.
[2020-03-16 18:34] LABS: PROTEIN - BODY FLUID 3.1 G/DL
[2020-03-16 20:00] VITALS: BP 108/70
[2020-03-16 21:04] LABS: EOS BF 1 %; MACROPHAGES BF 19 %; MESOTHELIALS BF 36 %; NEUT - BF 31 %
[2020-03-17 04:30] VITALS: BP 104/65
[2020-03-17 06:46] LABS: CALC OSMOLALITY 269 mosm/kg (275-300); CARBON DIOXIDE 28.7 mmol/L (21.0-32.0); CHLORIDE - SERUM 102 mmol/L (98-107); CREATININE - SERUM 0.6 mg/dL (0.6-1.3); GLUCOSE 97 mg/dL (74-106); POTASSIUM - SERUM 4.5 mmol/L (3.5-5.1); SODIUM 136 mmol/L (136-145); UREA NITROGEN 8 mg/dL (7-18); eGFR NON AFRICAN AMERICAN > 90 mL/min (90-120)
[2020-03-17 06:54] LABS: BASOPHILS 1.4 % (0-2); EOSINOPHILS 1.2 % (0-7); HEMATOCRIT 27.1 % (36.0-48.0); HEMOGLOBIN 8.2 g/dL (12-16); LYMPHOCYTES 11.2 % (15-50); MCH 25.2 pg (26.0-34.0); MCHC 30.3 g/dL (31.0-37.0); MCV 83.4 fL (80.0-100.0); MONOCYTES 9.7 % (2-11); NEUTROPHILS 61.5 % (40-80); PLATELET COUNT 374 10x3/uL (130-400); RBC 3.25 10x6/uL (4.00-5.40); RDW 17.2 % (11.5-14.5); WBC 8.1 10x3/uL (4.8-10.8)
[2020-03-17] MEDS ORDERED: BENADRYL25 MG PO (07:33)
[2020-03-17] MEDS ORDERED: PEPCID PO (07:35)
[2020-03-17] MEDS ORDERED: METFORMIN HCL500 M1 PO (07:37)
[2020-03-17 08:00] VITALS: BP 109/74
[2020-03-17 12:00] VITALS: BP 116/78
--- NOTE | 2020-03-17 12:31 | MORECARE ---
CASE MANAGEMENT DISCHARGE SUMMARY PATIENT: TYRA MARTINEZ UNIT: [id number] ADM DATE: 03/04/20 AGE: 59 : 58 SEX: F ROOM/BED: D.2207 AUTHOR: DEB,MICHAEL PHYSICIAN: REFERRING PHYSICIAN: CAYLA TY MD DATE OF SERVICE: 03/17/20 Discharge Plan Patient Name: TYRA MARTINEZ Facility: [facility]:[place] : 1960 Planned Disposition: Home or Self Care Anticipated Discharge Date: Discharge Date: Expected LOS: Initial Reviewer: [email or web address] Initial Review Date: 03/04/2020 Generated: 03/17/20 1:31 pm Comments DCP- Discharge Planning Updated by [email or web address]: Salena Perry on 03/17/20 11:[address] PATIENT ZULMA BE DISCHARGING HOME TODAY, IMM SIGNED AND EXPLAINED. PATIENT IS REQUESTING NIRTO FROM DR MCFARLAND, WILL HAVE THE DC COORDINATOR INQUIRE ABOUT THIS. [facility] FOR [facility]. I HAVE CONTACTED THEM ABOUT THE XOPONEX. THEY DO NOT CARRY THIS MEDICATION. I HAVE CONTACTED DR AZEVEDO ABOUT THIS. DCP- Discharge Planning Updated by [email or web address]: Salena Perry on 03/10/20 1:[address] Patient Name: TYRA MARTINEZ Admission Status: ER Accout number: [id number] Admission Date: 03-04-2020 : 1960 Admission Diagnosis:PNEUMONIA, UNSPECIFIED ORGANISM Attending: CAYLA TY Current LOS: 6 Anticipated DC Date: Planned Disposition: Home or Self Care Primary Insurance: MEDICARE A & B Discharge Planning Comments: CM met with patient to complete initial dc planning assessment. CM educated patient on the CM role and verbal consent given by patient to complete assessment. Patient lives at home with family. At discharge patient plans to return home and feels this is a safe discharge. CM discussed availability of home health, rehab services, and medical equipment. Family will drive her home. Patient denied known discharge needs at this time. CM will continue to follow and will assist as needed with dc plans/needs. Dental Laboratory Supervisor: Salena Perry DCPIA - Discharge Planning Initial Assessment Updated by [email or web address]: Salena Perry on 03/10/20 2:02 pm * Is the patient Alert and Oriented? Yes * PCP [place] * Pharmacy [facility] [address] * Preadmission Environment Home with Family * ADLs Independent * Equipment None * List name and contact numbers for known caregivers / representatives who currently or will assist patient after discharge: UNA HERNANDEZ (SON) [phone] RIVERA MARTINEZ (SON) [phone] * Verbal permission to speak to the caregivers and representatives has been obtained from the patient. N/A * Community resources currently utilized None * Additional services required to return to the preadmission environment? No * Can the patient safely return to the preadmission environment? Yes * Has this patient been hospitalized within the prior 30 days at any hospital? No Coverage Notice Reviewer: [email or web address] Bessie Perry Notice Issued Date-Time: 03/17/2020 12:05 Notice Type: IM Discharge Notice Notice Delivered To: Patient Relationship to Patient: Silo Tender Name: Delivery Method: HAND - Hand Delivered Britany Days: Prior Verbal Notification: Recipient Understood Notice: Yes Recipient Signature: Yes Med Rec Note Co-signed by Attending: Coverage Notice Comment: Last DP export: 03/10/20 1:03 p Patient Name: TYRA MARTINEZ Page [phone] at 1231 All edits/amendments must be made on the electronic document DICTATION DATE: 03/17/20 1231 DIMENSIONAL INSPECTOR: LUZ 03/17/20 1231 RPT#: [id number] DC DATE: STATUS: ADM IN [facility] [address] [place] [address] END OF REPORT
[2020-03-17] MEDS ORDERED: NITROSTAT0.3 MG SL (14:04)
[2020-03-17] MEDS ORDERED: XOPENEX 0.0.63 MG/3 UPD (14:04)
--- NOTE | 2020-03-17 14:22 | NUR ---
DISCHARGE EDUCATION PROVIDED BOTH WRITTEN AND VERBAL. VERBALIZED UNDERSTANDING. DENIES FURTHER QUESTIONS. DRSG PROVIDED FOR PICC DRSG CHANGE AND FLUSHES X5 SENT WITH PATIENT. DENIES FURTHER NEEDS.
--- NOTE | 2020-03-17 14:32 | NUR ---
PATIENT DC HOME WITH WITH ALL BELONGINGS.
--- NOTE | 2020-03-17 15:57 | MORECARE ---
CASE MANAGEMENT DISCHARGE SUMMARY PATIENT: TYRA MARTINEZ UNIT: [id number] ADM DATE: 03/04/20 AGE: 59 : 58 SEX: F ROOM/BED: D.2207 AUTHOR: MICHAEL BOYD PHYSICIAN: REFERRING PHYSICIAN: CAYLA TY MD DATE OF SERVICE: 03/17/20 Discharge Plan Patient Name: TYRA MARTINEZ Facility: [facility]:[place] : 1960 Planned Disposition: Home or Self Care Anticipated Discharge Date: Discharge Date: 03/17/2020 Expected LOS: Initial Reviewer: [email or web address] Initial Review Date: 03/04/2020 Generated: 03/17/20 4:57 pm Comments DCP- Discharge Planning Updated by [email or web address]: Salena Perry on 03/17/20 2:[address] PATIENT DISCHARGED HOME TODAY, HER XNOPENEX WILL BE ORDERED THROUGH [facility] AND THEY WILL SHIP OUT THE DRUG TOMORROW. ELIZABETH WITH DR MCFARLAND WAS CALLING IN [facility] FOR HER. PATIENT DENIED ANY NEEDS AND WAS EXPLAINED ALL THE ABOVE DCP- Discharge Planning Updated by [email or web address]: Salena Perry on 03/17/20 11:[address] PATIENT ZULMA BE DISCHARGING HOME TODAY, IMM SIGNED AND EXPLAINED. PATIENT IS REQUESTING NIRTO FROM DR MCFARLAND, WILL HAVE THE DC COORDINATOR INQUIRE ABOUT THIS. CINDA FOR [facility]. I HAVE CONTACTED THEM ABOUT THE XOPONEX. THEY DO NOT CARRY THIS MEDICATION. I HAVE CONTACTED DR AZEVEDO ABOUT THIS. DCP- Discharge Planning Updated by [email or web address]: Salena Perry on 03/10/20 1:[address] Patient Name: TYRA MARTINEZ Admission Status: ER Accout number: [id number] Admission Date: 03-04-2020 : 1960 Admission Diagnosis:PNEUMONIA, UNSPECIFIED ORGANISM Attending: CAYLA TY Current LOS: 6 Anticipated DC Date: Planned Disposition: Home or Self Care Primary Insurance: MEDICARE A & B Discharge Planning Comments: CM met with patient to complete initial dc planning assessment. CM educated patient on the CM role and verbal consent given by patient to complete assessment. Patient lives at home with family. At discharge patient plans to return home and feels this is a safe discharge. CM discussed availability of home health, rehab services, and medical equipment. Family will drive her home. Patient denied known discharge needs at this time. CM will continue to follow and will assist as needed with dc plans/needs. Senior Enlisted Advisor: Salena Perry DCPIA - Discharge Planning Initial Assessment Updated by [email or web address]: Salena Perry on 03/10/20 2:02 pm * Is the patient Alert and Oriented? Yes * PCP P[place]ST[place] * Pharmacy [facility] [address] * Preadmission Environment Home with Family * ADLs Independent * Equipment None * List name and contact numbers for known caregivers / representatives who currently or will assist patient after discharge: UNA HERNANDEZ (SON) [phone] RIVERA MARTINEZ (SON) [phone] * Verbal permission to speak to the caregivers and representatives has been obtained from the patient. N/A * Community resources currently utilized None * Additional services required to return to the preadmission environment? No * Can the patient safely return to the preadmission environment? Yes * Has this patient been hospitalized within the prior 30 days at any hospital? No Coverage Notice Reviewer: [email or web address] - Salena Perry Notice Issued Date-Time: 03/17/2020 12:05 Notice Type: IM Discharge Notice Notice Delivered To: Patient Relationship to Patient: Needle Leader Name: Delivery Method: HAND - Hand Delivered Britany Days: Prior Verbal Notification: Recipient Understood Notice: Yes Recipient Signature: Yes Med Rec Note Co-signed by Attending: Coverage Notice Comment: Last DP export: 03/17/20 11:31 a Patient Name: TYRA MARTINEZ Page [phone] at 1557 All edits/amendments must be made on the electronic document DICTATION DATE: 03/17/20 1553 AIR INTERCEPT CONTROLLER: LUZ 03/17/20 1557 RPT#: [id number] DC DATE:03/17/20 STATUS: DIS IN [facility] [address] [place] [address] END OF REPORT
--- NOTE | 2020-03-19 13:32 | MORECARE ---
CASE MANAGEMENT DISCHARGE SUMMARY PATIENT: TYRA MARTINEZ UNIT: [id number] ADM DATE: 03/04/20 AGE: 59 : 58 SEX: F ROOM/BED: D.2201 AUTHOR: MICHAEL BOYD PHYSICIAN: REFERRING PHYSICIAN: CAYLA TY MD DATE OF SERVICE: 03/19/20 Discharge Plan Patient Name: TYRA MARTINEZ Facility: [facility]:[place] : 1960 Planned Disposition: Home or Self Care Anticipated Discharge Date: Discharge Date: 03/17/2020 Expected LOS: Initial Reviewer: [id number] Initial Review Date: 03/04/2020 Generated: 03/19/20 2:32 pm Comments DCP- Discharge Planning Updated by [id number]: Salena Perry on 03/17/20 2:[address] PATIENT DISCHARGED HOME TODAY, HER XNOPENEX WILL BE ORDERED THROUGH [employer] [facility] AND THEY WILL SHIP OUT THE DRUG TOMORROW. ELIZABETH WITH DR MCFARLAND WAS CALLING IN [place] FOR HER. PATIENT DENIED ANY NEEDS AND WAS EXPLAINED ALL THE ABOVE DCP- Discharge Planning Updated by [id number]: Salena Perry on 03/17/20 11:[address] PATIENT ZULMA BE DISCHARGING HOME TODAY, IMM SIGNED AND EXPLAINED. PATIENT IS REQUESTING NIRTO FROM DR MCFARLAND, WILL HAVE THE DC COORDINATOR INQUIRE ABOUT THIS. CINDA FOR [facility]. I HAVE CONTACTED THEM ABOUT THE XOPONEX. THEY DO NOT CARRY THIS MEDICATION. I HAVE CONTACTED DR AZEVEDO ABOUT THIS. DCP- Discharge Planning Updated by [id number]: Salena Perry on 03/10/20 1:[address] Patient Name: TYRA MARTINEZ Admission Status: ER Accout number: [id number] Admission Date: 03-04-2020 : 1960 Admission Diagnosis:PNEUMONIA, UNSPECIFIED ORGANISM Attending: CAYLA TY Current LOS: 6 Anticipated DC Date: Planned Disposition: Home or Self Care Primary Insurance: MEDICARE A & B Discharge Planning Comments: CM met with patient to complete initial dc planning assessment. CM educated patient on the CM role and verbal consent given by patient to complete assessment. Patient lives at home with family. At discharge patient plans to return home and feels this is a safe discharge. CM discussed availability of home health, rehab services, and medical equipment. Family will drive her home. Patient denied known discharge needs at this time. CM will continue to follow and will assist as needed with dc plans/needs. [employer]: Salena Perry DCPIA - Discharge Planning Initial Assessment Updated by [email or web address]: Salena Perry on 03/10/20 2:02 pm * Is the patient Alert and Oriented? Yes * PCP TOGOLESE * Pharmacy [facility] [place] * Preadmission Environment Home with Family * ADLs Independent * Equipment None * List name and contact numbers for known caregivers / representatives who currently or will assist patient after discharge: UNA HERNANDEZ (SON) [phone] RIVERA MARTINEZ (SON) [phone] * Verbal permission to speak to the caregivers and representatives has been obtained from the patient. N/A * Community resources currently utilized None * Additional services required to return to the preadmission environment? No * Can the patient safely return to the preadmission environment? Yes * Has this patient been hospitalized within the prior 30 days at any hospital? No Coverage Notice Reviewer: [email or web address] - Salena Perry Notice Issued Date-Time: 03/17/2020 12:05 Notice Type: IM Discharge Notice Notice Delivered To: Patient Relationship to Patient: Supervisor Cell Maintenance Name: Delivery Method: HAND - Hand Delivered Britany Days: Prior Verbal Notification: Recipient Understood Notice: Yes Recipient Signature: Yes Med Rec Note Co-signed by Attending: Coverage Notice Comment: Last DP export: 03/17/20 2:57 p Patient Name: TYRA MARTINEZ Page [id number] at 1332 All edits/amendments must be made on the electronic document DICTATION DATE: 03/19/20 1332 ANTENNA INSTALLER: LUZ 03/19/20 1332 RPT#: [id number] DC DATE:03/17/20 STATUS: DIS IN [facility] [address] [place] [address] END OF REPORT
== END 2020-03-17 14:37 | disposition home or self-care (01) | DRG 193 ==
LOC: D.ER 16:22 → D.M2 19:53 → D.MS 03-06 19:38
PROVIDERS: Family Medicine; General Practice; Internal Medicine Medical Oncology; Internal Medicine Pulmonary Disease; Radiology Diagnostic Radiology; Specialist; ADMIT Family Medicine; ATTEND Family Medicine
PROC: 0W993ZZ Drainage of Right Pleural Cavity, Percutaneous Approach (ICD-10-PCS; 2020-03-06)
PROC: 05HY33Z Insertion of Infusion Device into Upper Vein, Percutaneous Approach (ICD-10-PCS; principal; 2020-03-07 14:15)
PROC: 0W993ZZ Drainage of Right Pleural Cavity, Percutaneous Approach (ICD-10-PCS; 2020-03-15)
PROC: 0W9B3ZZ Drainage of Left Pleural Cavity, Percutaneous Approach (ICD-10-PCS; 2020-03-16)
DX: J18.9 Pneumonia, unspecified organism (principal); J96.01 Acute respiratory failure with hypoxia; C78.00 Secondary malignant neoplasm of unspecified lung; C77.9 Secondary and unspecified malignant neoplasm of lymph node, unspecified; C79.51 Secondary malignant neoplasm of bone; E46 Unspecified protein-calorie malnutrition; R05 Cough; R73.9 Hyperglycemia, unspecified; Z66 Do not resuscitate; K21.9 Gastro-esophageal reflux disease without esophagitis; R09.1 Pleurisy; D64.9 Anemia, unspecified; C50.919 Malignant neoplasm of unspecified site of unspecified female breast; Z17.0 Estrogen receptor positive status [ER+]; L30.9 Dermatitis, unspecified

== ENCOUNTER → 2020-03-25 19:28 | Outpatient (CLI) | payer MEDICARE, BC ==
[2020-03-05 12:56] VITALS: BMI 21.9
[~2020-03-25 19:28] MED LIST changes: +BENADRYL25 MG PO; +BROMFED-DM COU473 ML PO; +GLUCOPHAGE500 MG PO; +HUMALOG 30100 UNITS/ SC; +HYDROCODON-ACE1 EA10 PO; +LASIX40 MG PO; +METFORMIN HCL500 M1 PO; +MUCINEX600 MG PO; +NASONEX NASAL S17 GM NASAL; +NITROSTAT0.3 MG SL; +NYSTATIN100000 UN4 PO; +OMEPRAZOLE20 M1 PO; +PEPCID PO; +SINGULAIR10 MG PO; +SORINE80 MG PO; +SYMBICORT 16010.2 GM INH; +TRAZODONE HCL150 MG; +TRESIBA FL100 UNIT/1 SC; +UROCIT-K10 MEQ; +VOLTAREN75 MG PO; +XOPENEX 0.0.63 MG/3 UPD
[2020-03-25 20:50] LABS: BASOPHILS 1.4 % (0-2); EOSINOPHILS 2.3 % (0-7); HEMATOCRIT 33.1 % (36.0-48.0); HEMOGLOBIN 9.7 g/dL (12-16); IMMATURE GRANULOCYTES 0.8 % (0-5); LYMPHOCYTES 15.8 % (15-50); MCH 24.7 pg (26.0-34.0); MCHC 29.3 g/dL (31.0-37.0); MCV 84.4 fL (80.0-100.0); MEAN PLATELET VOLUME 8.9 fL (7.4-10.4); MONOCYTES 12.8 % (2-11); NEUTROPHILS 66.9 % (40-80); RBC 3.92 10x6/uL (4.00-5.40); RDW 18.8 % (11.5-14.5); WBC 7.7 10x3/uL (4.8-10.8)
[2020-03-25 20:54] LABS: PLATELET COUNT 555 10x3/uL (130-400)
[2020-03-25 21:13] LABS: ALBUMIN 2.2 g/dL (3.4-5.0); ALKALINE PHOSPHATASE 112 U/L (30-120); ALT (SGPT) 25 U/L (10-68); BILIRUBIN - TOTAL 0.24 mg/dL (0.2-1.3); CALC OSMOLALITY 270 mosm/kg (275-300); CALCIUM 8.6 mg/dL (8.5-10.1); CARBON DIOXIDE 31.4 mmol/L (21.0-32.0); CHLORIDE - SERUM 99 mmol/L (98-107); CREATININE - SERUM 0.7 mg/dL (0.6-1.3); GLUCOSE 109 mg/dL (74-106); POTASSIUM - SERUM 4.1 mmol/L (3.5-5.1); PROTEIN - SERUM 7.1 g/dL (6.4-8.2); SODIUM 135 mmol/L (136-145); UREA NITROGEN 12 mg/dL (7-18); eGFR NON AFRICAN AMERICAN 90 mL/min (90-120)
== END | disposition home or self-care (01) ==
LOC: D.LABREF 19:28
PROVIDERS: ATTEND Family Medicine
DX: C50.911 Malignant neoplasm of unspecified site of right female breast (principal); R73.9 Hyperglycemia, unspecified; J90 Pleural effusion, not elsewhere classified; J81.0 Acute pulmonary edema

== ENCOUNTER 2020-03-26 11:31 | Outpatient (CLI) | payer MEDICARE, BC ==
[~2020-03-26] VITALS: Ht 162.6 cm; Wt 48.2 kg
--- NOTE | ~2020-03-26 | HEMODYNAMI ---
PATIENT:TYRA MARTINEZ MEDICAL RECORD: [id number] : 58 LOCATION:TJ ADMISSION DATE: 03/26/20 Generatedon:03/26/202015:33 Patient name: TYRA MARTINEZ Patient #: [id number] SSN: : 1960 Date of study: 03/26/2020 Page: Of Hemodynamic Procedure Report Patient Data Patient Demographics Procedure consent was obtained First Name: TYRA Gender: Female Last Name: : 1960 [facility] Initial: K Age: 59 year(s) Patient #: [id number] Race: Unknown Additional ID: [id number] Contact details Address: [address] [place] [address] State: [place] City: [place] Zip code: [address] Past Medical History Allergies Allergen Reaction Date Comments Reported Morphine 03/26/2020 Admission Admission Data Admission Date: 03/26/2020 Admission Time: 11:31 Procedure Procedure Types Cath Procedure Peripheral Cath Diagnostic Procedure Miscellaneous Pleurex Pleurex Cath Place w/ Imaging Procedure Description Procedure Date Procedure Date: 03/26/2020 Procedure Start Time: 15:00 Procedure End Time: 15:33 Procedure Staff Name Function Clarence Bocanegra MD Performing Physician CHRIS CAMPOS RT Monitor Michael Maldonado RT Scrub Rodrigo ABDULLAHI RN Nurse Procedure Data Cath Procedure Fluoroscopy Diagnostic fluoroscopy Total fluoroscopy Time: 1.8 time: 1.8 min min Procedure Medications Medication Administration Route Dosage Lidocaine 1% added to field 20 Heparin Flush Bag added to field 1 bags (1000units/500ml NS) Fentanyl I.V. 50 mcg Versed I.V. 1 mg Hemodynamics Rest Heart Rate: 111 (bpm) Snapshots Pre Cath Intra NCS Post Cath Vital Signs Time Heart Resp SPO2 etCO2 NIBP (mmHg) Rhythm Pain Sedation Rate (ipm) (%) (mmHg) Status Level (bpm) 14:36:07 111 27 98 22.1 126/92(108) NSR 0 (11) 9(A) , No pain 14:40:06 112 27 93 25.1 131/88(106) NSR 0 (11) 9(A) , No pain 14:44:08 111 19 96 22.9 125/93(107) NSR 0 (11) 9(A) , No pain 14:48:08 111 22 96 25.1 135/87(107) NSR 0 (11) 9(A) , No pain 14:52:12 112 19 95 24.4 132/88(112) NSR 0 (11) 9(A) , No pain 14:56:13 111 21 96 16.2 129/91(111) NSR 0 (11) 9(A) , No pain 15:00:17 111 20 91 25.1 122/84(96) NSR 0 (11) 9(A) , No pain 15:04:19 110 20 95 25.1 120/82(99) NSR 0 (11) 9(A) , No pain 15:08:20 111 24 96 14 117/78(95) NSR 0 (11) 9(A) , No pain 15:12:18 111 21 95 19.2 116/81(106) NSR 0 (11) 9(A) , No pain 15:16:18 111 22 92 25.1 118/82(91) NSR 0 (11) 9(A) , No pain 15:20:17 111 28 95 24.4 122/81(98) NSR 0 (11) 9(A) , No pain 15:25:16 112 32 93 18.4 Measuring NSR 0 (11) 9(A) , No pain 15:25:18 112 32 93 19.2 119/70(95) NSR 0 (11) 9(A) , No pain 15:29:20 111 31 93 14.7 118/77(96) NSR 0 (11) 9(A) , No pain 15:33:22 112 23 96 22.9 110/82(96) NSR 0 (11) 9(A) , No pain Medications Time Medication Route Dose Verified Delivered Reason Notes Effe ctiveness by by 14:50:18 Lidocaine 1% added 20ml Clarence Lima for local to vial Daljit Bocanegra MD anesthetic field MD 14:50:30 Heparin Flush added 1 Clarence Lima used for Bag to bags Daljit Bocanegra MD procedure (1000units/500ml field NS) 14:56:42 Fentanyl I.V. 50 Clarence Wallace for mcg BRADLY Bocanegra sedation RN 14:56:49 Versed I.V. 1 mg Clarence Wallace for BRADLY Bocanegra MD lockstitch lining setter Log Time Note 14:34:48 Rodrigo ABDULLAHI RN sent for patient. Start room use. 14:34:49 Time tracking: Regular hours (M-F 7:00 - 5:00) 14:34:53 Plan of Care:Hemodynamics will remain stable., Cardiac rhythm will remain stable., Comfort level will be maintained., Respiratory function will remain adequate., Patient/ family verbilizes understanding of procedure., Procedure tolerated without complication., Recovers from procedure without complications.. 14:34:57 Patient received from Outpatients to IR Alert and oriented. Tansferred to table in Supine position. 14:34:59 Signed procedure consent form obtained from patient. 14:35:00 Warm blankets applied, and lisa hugger turned on for patient comfort. 14:35:00 Correct patient and procedure confirmed by team. 14:35:01 ECG and BP/O2 sat monitors applied to patient. 14:35:01 Vital chart was started 14:35:02 Baseline sample Acquired. 14:35:05 Full Disclosure recording started 14:35:06 - 14:35:09 H&P Date Dictated: 03/26/2020 H&P Addendum completed by physician on day of procedure. (MUST COMPLETE FOR ALL OUTPATIENTS). 14:35:11 Pre-procedure instructions explained to patient. 14:35:11 Pre-op teaching completed and patient verbalized understanding. 14:35:16 Patient NPO since Breakfast. 14:35:24 Patient allergic to Morphine 14:35:26 Patient diabetic? No. 14:35:30 Is patient on blood thinner?No 14:35:42 - 14:38:29 ----Pre-sedation anethsthesia assessment.---- 14:38:32 Previous problem with sedation/anesthesia? No ? 14:38:33 Snore? No 14:38:36 Sleep apnea? No 14:38:37 Deviated septum? No 14:38:39 Opens mouth fully? Yes 14:38:40 Sticks out tongue? Yes 14:38:48 Airway obstruction? Yes cancer 14:38:53 Dentures? No ? 14:38:55 - 14:39:36 IV patent on arrival in Right upper arm with 0.9% NaCl at KVO. 14:39:44 Right chest area was prepped with chlora-prep and draped in sterile fashion 14:39:45 Alarms reviewed by Barber Wick 14:39:46 Sharps counted by scrub and verified by RJackNJack 14:39:48 - 14:40:23 Use device set IR Diagnostic 14:40:25 Bag Decrossana (2002S) opened to sterile field. 14:40:25 Sterile Angiographic Pack opened to sterile field. 14:40:26 Tegaderm 4 x 4 (1626W) opened to sterile field. 14:40:34 MICROPUNCTURE 4FR Marek ([id number]) opened to sterile field. 14:40:41 - 14:50:18 Lidocaine 1% 20ml vial added to field was administered by Clarence Bocanegra MD; for local anesthetic; Verbal order read back and verified. 14:50:30 Heparin Flush Bag (1000units/500ml NS) 1 bags added to field was administered by Clarence Bocanegra MD; used for procedure; Verbal order read back and verified. 14:55:33 Physician arrived 14:55:33 --------ALL STOP TIME OUT------ 14:55:36 Final Timeout: patient, procedure, and site verified with staff and physician. All members of the team are in agreement. 14:56:42 Fentanyl 50 mcg I.V. was administered by Rodrigo ABDULLAHI RN; for sedation; Verbal order read back and verified. 14:56:49 Versed 1 mg I.V. was administered by Rodrigo ABDULLAHI RN; for sedation; Verbal order read back and verified. 14:57:11 Right chest site verified by team. 14:57:15 Fire Safety Assessment: A--An alcohol-based skin anteseptic being used preoperatively., C--Open oxygen or nitrous oxide is being used. 14:57:38 1) 90+ Normal kidney functon but urine findings or structural abnormalities or genetic trait point to kidney disease. 15:00:07 Procedure started. 15:00:11 Local anesthetic to Chest area with Lidocaine 1% by Clarence Bocanegra MD.INITIAL ACCESS ONLY 15:02:12 Access obtained with 4Fr micropunture. 15:04:20 PLEURX PLEURAL cath system ([id number]) opened to sterile field. 15:31:30 Procedure ended.(Physican Out) 15:31:51 Fluoroscopy time 01.80 minutes. 15:31:54 Dose Area Product 7 mGy/cm. 15:31:56 Sharps counted by scrub and verified by R.N. 15:32:07 Post-op/insertion site Right Chest area dressed using a 4 x 4 and Tegaderm. 15:32:12 Post procedure instruction explained to patient.Patient verbalizes understanding. 15:32:14 Procedure and supply charges have been captured, reviewed, submitted an d are correct. 15:33:01 Vital chart was stopped 15:33:04 See physician's report for complete and final results. 15:33:06 Report given to Outpatients. 15:33:13 Patient transfered to Outpatients with Stretcher. 15:33:16 Procedure ended. 15:33:16 Full Disclosure recording stopped Device Usage Item Name Manufacture Quantity Catalog Hospital Part Current Minima l Lot# / Number Charge Number Stock Stock Serial# Code Bag Decanter Microtek 1 [id number] 5 () Medical Inc. Sterile Cardinal 1 [id number] 5 Angiographic Health Pack Tegaderm 4 x 3M 1 1626W [id number] 5 4 (1626W) MICROPUNCTURE [employer] 1 [id number] 5 4FR Cook ([id number]) PLEURX CareFusion 1 [id number] 5 PLEURAL cath system ([id number]) Signature Audit [place] Stage Time Signature Unsigned Intra-Procedure 03/26/2020 CHRIS CAMPOS RT 3:33:39 PM (R) [facility] [address] [place] [address]
[~2020-03-26 11:31] MED LIST changes: -BROMFED-DM COU473 ML PO
[2020-03-26] MEDS ORDERED: XOPENEX 0.0.63 MG/3 UPD (13:23)
[2020-03-26] MEDS ORDERED: BROMFED-DM COU473 ML PO (13:24)
[2020-03-26] MEDS ORDERED: NYSTATIN100000 UN4 PO (13:24)
[2020-03-26] MEDS ORDERED: HYDROCODON-ACE1 EA10 PO (13:25)
[2020-03-26 13:30] VITALS: BP 126/84; Ht 162.6 cm; Wt 48.2 kg
[2020-03-26 13:41] LABS: BASOPHILS 1.7 % (0-2); EOSINOPHILS 1.7 % (0-7); HEMATOCRIT 30.3 % (36.0-48.0); IMMATURE GRANULOCYTES 0.8 % (0-5); LYMPHOCYTES 18.4 % (15-50); MCH 24.6 pg (26.0-34.0); MCHC 29.7 g/dL (31.0-37.0); MCV 82.8 fL (80.0-100.0); MEAN PLATELET VOLUME 8.1 fL (7.4-10.4); MONOCYTES 17.6 % (2-11); NEUTROPHILS 59.8 % (40-80); PLATELET COUNT 475 10x3/uL (130-400); RBC 3.66 10x6/uL (4.00-5.40); RDW 18.3 % (11.5-14.5); WBC 7.8 10x3/uL (4.8-10.8)
[2020-03-26 13:57] LABS: CALC OSMOLALITY 265 mosm/kg (275-300); CALCIUM 7.8 mg/dL (8.5-10.1); CARBON DIOXIDE 27.6 mmol/L (21.0-32.0); CHLORIDE - SERUM 98 mmol/L (98-107); CREATININE - SERUM 0.6 mg/dL (0.6-1.3); GLUCOSE 88 mg/dL (74-106); POTASSIUM - SERUM 4.6 mmol/L (3.5-5.1); SODIUM 134 mmol/L (136-145); UREA NITROGEN 11 mg/dL (7-18); eGFR NON AFRICAN AMERICAN > 90 mL/min (90-120)
[2020-03-26 14:41] LABS: APTT 37.3 SECONDS (22.8-39.4); INR 0.99 (0.85-1.17)
--- NOTE | 2020-03-26 17:03 | NUR ---
1550 STEF HERE TO INSTRUCT PT ON PLEURX CATHETER. PICC LINE FLUSHED AND RECAPPED.
== END 2020-03-26 16:40 | disposition home or self-care (01) ==
LOC: D.RAD 11:31
PROVIDERS: General Practice; ATTEND Family Medicine
DX: C50.911 Malignant neoplasm of unspecified site of right female breast (principal); J91.0 Malignant pleural effusion; R73.9 Hyperglycemia, unspecified; J81.0 Acute pulmonary edema

== ENCOUNTER 2020-04-02 11:32 | Outpatient (CLI) | payer MEDICARE, BC ==
[~2020-04-02] VITALS: Ht 162.6 cm; Wt 48.2 kg
[~2020-04-02 11:32] MED LIST changes: +BROMFED-DM COU473 ML PO
[2020-04-02 12:42] LABS: HEMATOCRIT 30.5 % (36.0-48.0); HEMOGLOBIN 9.2 g/dL (12-16); MCH 24.3 pg (26.0-34.0); MCHC 30.2 g/dL (31.0-37.0); MCV 80.7 fL (80.0-100.0); MEAN PLATELET VOLUME 8.6 fL (7.4-10.4); PLATELET COUNT 413 10x3/uL (130-400); RBC 3.78 10x6/uL (4.00-5.40); RDW 17.9 % (11.5-14.5); WBC 30.7 10x3/uL (4.8-10.8)
[2020-04-02 12:58] LABS: APTT 29.8 SECONDS (22.8-39.4); PROTIME 13.1 SECONDS (11.6-15.0)
[2020-04-02 13:00] LABS: LYMPHOCYTES 12 % (15-50); NEUTROPHILS 87 % (40-80); PLATELET ESTIMATE NORMAL
[2020-04-02 13:01] LABS: ANISOCYTOSIS OCC; TARGET CELLS 1+
[2020-04-02 13:06] LABS: CALC OSMOLALITY 263 mosm/kg (275-300); CALCIUM 8.1 mg/dL (8.5-10.1); CARBON DIOXIDE 25.1 mmol/L (21.0-32.0); CHLORIDE - SERUM 95 mmol/L (98-107); CREATININE - SERUM 0.8 mg/dL (0.6-1.3); GLUCOSE 107 mg/dL (74-106); SODIUM 130 mmol/L (136-145); UREA NITROGEN 20 mg/dL (7-18); eGFR NON AFRICAN AMERICAN 77 mL/min (90-120)
[2020-04-02 13:26] VITALS: Ht 162.6 cm; Wt 48.2 kg
[2020-04-02] MEDS ORDERED: BETAPACE 80 MG80 MG PO (13:26)
--- NOTE | 2020-04-02 18:53 | NUR ---
1815 PICC LINE FLUSHED AND HEPARINIZED. PT DISCHARGED HOME IN STABLE CONDITION AND W/O C/O
== END 2020-04-02 18:15 ==
LOC: D.RAD 11:32
PROVIDERS: Radiology Vascular & Interventional Radiology; ATTEND Family Medicine
DX: J90 Pleural effusion, not elsewhere classified (principal)

== ENCOUNTER 2020-04-10 10:39 | Day surgery (SDC) | payer MEDICARE, BC ==
[~2020-04-10] VITALS: Ht 162.6 cm; Wt 48.2 kg
--- NOTE | ~2020-04-10 | HEMODYNAMI ---
PATIENT:TYRA MARTINEZ MEDICAL RECORD: [id number] : 58 LOCATION:[facility] ADMISSION DATE: 04/10/20 Generatedon:04/10/202018:09 Patient name: TYRA MARTINEZ Patient #: [id number] SSN: : 1960 Date of study: 04/10/2020 Page: Of Hemodynamic Procedure Report Patient Data Patient Demographics Procedure consent was obtained First Name: TYRA Gender: Female Last Name: : 1960 [facility] Initial: K Age: 60 year(s) Patient #: [id number] Race: Unknown Additional ID: [id number] Contact details Address: [address] [place] [address] State: [place] City: [place] Zip code: [address] Past Medical History Allergies Allergen Reaction Date Comments Reported Morphine 03/26/2020 Morphine 04/10/2020 Admission Admission Data Admission Date: 04/10/2020 Admission Time: 10:39 Procedure Procedure Types Cath Procedure Peripheral Cath Diagnostic Procedure Miscellaneous Pleurex Pleurex Cath Place w/ Imaging Procedure Description Procedure Date Procedure Date: 04/10/2020 Procedure Start Time: 17:30 Procedure Staff Name Function Clarence Bocanegra MD Performing Physician CHRIS CAMPOS RT Monitor Michael Maldonado RT Scrub Rodrigo ABDULLAHI RN Nurse Procedure Data Cath Procedure Fluoroscopy Diagnostic fluoroscopy Total fluoroscopy Time: 0.7 time: 0.7 min min Diagnostic fluoroscopy Total fluoroscopy dose: 3 dose: 3 mGy mGy Procedure Medications Medication Administration Route Dosage Fentanyl I.V. 50 mcg Versed I.V. 1 mg Fentanyl I.V. 25 mcg Lidocaine 1% added to field 20 Lidocaine 1% added to field 20 Fentanyl I.V. 25 mcg Versed I.V. 1 mg Hemodynamics Rest Heart Rate: 96 (bpm) Snapshots Pre Cath Intra NCS Post Cath Vital Signs Time Heart Resp SPO2 etCO2 NIBP Rhythm Pain Sedation Rate (ipm) (%) (mmHg) (mmHg) Status Level (bpm) 17:11:29 96 14 28.5 114/82(96) NSR 0 (11) 9(A) , No pain 17:15:29 94 16 27.7 115/77(92) NSR 0 (11) 9(A) , No pain 17:19:30 94 18 30 113/74(98) NSR 0 (11) 9(A) , No pain 17:23:30 96 15 27.7 120/76(97) NSR 0 (11) 9(A) , No pain 17:27:34 94 17 27.7 116/74(99) NSR 0 (11) 9(A) , No pain 17:31:35 94 19 29.2 115/74(90) NSR 0 (11) 9(A) , No pain 17:35:37 95 21 30 114/70(94) NSR 0 (11) 9(A) , No pain 17:39:39 94 22 27 114/74(95) NSR 0 (11) 8(A) , No pain 17:43:41 95 23 100 29.2 112/70(91) NSR 0 (11) 8(A) , No pain 17:47:42 95 21 98 20.2 106/67(85) NSR 0 (11) 8(A) , No pain 17:51:40 95 29 99 23.2 101/77(87) NSR 0 (11) 8(A) , No pain 17:55:35 95 21 100 28.5 113/72(96) NSR 0 (11) 8(A) , No pain 17:59:37 95 24 100 27 110/72(90) NSR 0 (11) 8(A) , No pain 18:03:36 95 24 18 109/70(85) NSR 0 (11) 9(A) , No pain Medications Time Medication Route Dose Verified Delivered Reason Notes Effectivene ss by by 17:25:11 Lidocaine added 20ml Clarence Cleaningr 1% to vial Daryla, BRADLY field RN 17:30:35 Fentanyl I.V. 50 Clarence Wallace for mcg Burda, BRADLY sedation RN 17:30:59 Versed I.V. 1 mg Clarence Wallace for Burda, BRADLY sedation RN 17:36:11 Fentanyl I.V. 25 Clarence Wallace for BRADLY Leal MD, RN 17:37:25 Lidocaine added 20ml Clarence Wallace 1% to vial BRADLY Bocanegra MD, RN 17:42:31 Fentanyl I.V. 25 Clarence Wallace for BRADLY Leal MD RN 17:42:39 Versed I.V. 1 mg Clarence Wallace for BRADLY Bocanegra MD band booker Log Time Note 16:52:33 Use device set IR Diagnostic 16:52:34 Bag Decanter (2002S) opened to sterile field. 16:52:35 Sterile Angiographic Pack opened to sterile field. 16:52:35 Tegaderm 4 x 4 (1626W) opened to sterile field. 16:52:47 [facility] RT (R) (CV) sent for patient. Start room use. 16:53:28 Time tracking: Regular hours (M-F 7:00 - 5:00) 16:53:33 Patient received from Outpatients to IR Alert and oriented. Tansferred to table in Supine position. 16:53:35 Signed procedure consent form obtained from patient. 16:53:37 Warm blankets applied, and lisa hugger turned on for patient comfort. 16:53:38 Correct patient and procedure confirmed by team. 16:53:39 ECG and BP/O2 sat monitors applied to patient. 16:53:56 H&P Date Dictated: 04/10/2020 H&P Addendum completed by physician on day of procedure. (MUST COMPLETE FOR ALL OUTPATIENTS). 16:53:58 Pre-procedure instructions explained to patient. 16:53:59 Pre-op teaching completed and patient verbalized understanding. 16:54:01 Family in waiting room. 16:54:10 Patient NPO since Midnight. 16:54:21 Patient allergic to Morphine 16:54:25 - 16:59:05 ----Pre-sedation anethsthesia assessment.---- 16:59:08 Previous problem with sedation/anesthesia? No ? 16:59:09 Snore? No 16:59:11 Sleep apnea? No 16:59:12 Deviated septum? No 16:59:13 Opens mouth fully? Yes 16:59:15 Sticks out tongue? Yes 16:59:24 Airway obstruction? Yes lung cancer 16:59:27 Dentures? No ? 16:59:30 - 17:04:23 IV patent on arrival in Rt PICC line with 0.45%NaCl at [facility]. 17:09:44 PLEURX PROCEDURE PATRICIA (48-6094) opened to sterile field. 17:10:21 Vital chart was started 17:10:22 Baseline sample Acquired. 17::26 Full Disclosure recording started 17::30 - 17:25:11 Lidocaine 1% 20ml vial added to field was administered by Rodrigo Harrison RN; ; Verbal order read back and verified. 17:26:12 Physician arrived 17:26:13 --------ALL STOP TIME OUT------ 17:26:19 Final Timeout: patient, procedure, and site verified with staff and physician. All members of the team are in agreement. 17:26:23 Fire Safety Assessment: A--An alcohol-based skin anteseptic being used preoperatively., C--Open oxygen or nitrous oxide is being used. 17:26:27 1) 90+ Normal kidney functon but urine findings or structural abnormalities or genetic trait point to kidney disease. 17:26:34 Sedation plan: IV Moderate Sedation Medication:Versed, Fentanyl 17:30:11 Procedure started. 17:30:15 Local anesthetic to Abdominal area with Lidocaine 1% by Clarence Bocanegra MD.INITIAL ACCESS ONLY 17:30:35 Fentanyl 50 mcg I.V. was administered by Rodrigo ABDULLAHI RN; for sedation; Verbal order read back and verified. 17:30:59 Versed 1 mg I.V. was administered by Rodrigo ABDULLAHI RN; for sedation; Verbal order read back and verified. 17:32:48 Access obtained with 4Fr micropunture. 17:32:59 MICROPUNCTURE 4FR Cook ([id number]) opened to sterile field. 17:36:11 Fentanyl 25 mcg I.V. was administered by Rodrigo ABDULLAHI RN; for sedation; Verbal order read back and verified. 17:37:25 Lidocaine 1% 20ml vial added to field was administered by Rodrigo Harrison RN; ; Verbal order read back and verified. 17:42:31 Fentanyl 25 mcg I.V. was administered by Rodrigo ABDULLAHI RN; for sedation; Verbal order read back and verified. 17:42:39 Versed 1 mg I.V. was administered by Rodrigo ABDULLAHI RN; for sedation; Verbal order read back and verified. 18:00:42 Procedure ended.(Physican Out) 18:01:15 Fluoroscopy time 00.70 minutes. 18:01:18 Fluoroscopy dose: 3 mGy 18:01:18 Flurop Dose total: 3 18:01:22 Sharps counted by scrub and verified by R.N. 18:02:48 Post Abdominal area:stable, soft, clean and dry 18:02:52 Post procedure instruction explained to patient.Patient verbalizes understanding. 18:02:53 Procedure and supply charges have been captured, reviewed, submitted an d are correct. 18:05:43 See physician's report for complete and final results. 18:06:48 Vital chart was stopped 18:06:49 End room use (Document Last) Device Usage Item Name Manufacture Quantity Catalog Hospital Part Current Minima l Lot# / Number Charge Number Stock Stock Serial# Code Bag Decanter Microtek 1 [id number] 5 () Medical Inc. Sterile Cardinal 1 [id number] 5 Angiographic Health Pack Tegaderm 4 x 3M 1 1626W [id number] 5 4 (1626W) PLEURX CareFusion 1 [id number] 1 PROCEDURE PATRICIA (36-0857) MICROPUNCTURE [facility] 1 [id number] [id number] 5 4FR [place] ([id number]) Signature Audit [place] Stage Time Signature Unsigned Intra-Procedure 04/10/2020 CHRIS CAMPOS RT 6:09:34 PM (R) [facility] [address] [place] [address]
[~2020-04-10 10:39] MED LIST changes: +BETAPACE 80 MG80 MG PO
[2020-04-10 13:37] VITALS: BP 114/76; Ht 162.6 cm; Wt 48.2 kg
[2020-04-10 13:50] LABS: CALC OSMOLALITY 260 mosm/kg (275-300); CARBON DIOXIDE 30.6 mmol/L (21.0-32.0); CHLORIDE - SERUM 96 mmol/L (98-107); CREATININE - SERUM 0.6 mg/dL (0.6-1.3); GLUCOSE 91 mg/dL (74-106); HEMATOCRIT 29.6 % (36.0-48.0); HEMOGLOBIN 8.8 g/dL (12-16); MCH 24.3 pg (26.0-34.0); MCHC 29.7 g/dL (31.0-37.0); MCV 81.8 fL (80.0-100.0); MEAN PLATELET VOLUME 9.2 fL (7.4-10.4); PLATELET COUNT 373 10x3/uL (130-400); POTASSIUM - SERUM 4.9 mmol/L (3.5-5.1); RBC 3.62 10x6/uL (4.00-5.40); RDW 19.5 % (11.5-14.5); SODIUM 130 mmol/L (136-145); UREA NITROGEN 13 mg/dL (7-18); WBC 47.3 10x3/uL (4.8-10.8); eGFR NON AFRICAN AMERICAN > 90 mL/min (90-120)
[2020-04-10 14:30] LABS: APTT 32.7 SECONDS (22.8-39.4); INR 0.93 (0.85-1.17); PROTIME 12.4 SECONDS (11.6-15.0)
[2020-04-10 15:19] LABS: LYMPHOCYTES 7 % (15-50); MONOCYTES 1 % (2-11); NEUTROPHILS 90 % (40-80); PLATELET ESTIMATE NORMAL
== END 2020-04-10 19:30 | disposition home or self-care (01) ==
LOC: D.SP 10:39 → D.LAB 10:39 → EDSTATUS 13:40 → D.SP 19:30
PROVIDERS: General Practice; ATTEND Family Medicine
DX: J91.0 Malignant pleural effusion (principal); E78.5 Hyperlipidemia, unspecified; R05 Cough; R50.9 Fever, unspecified; J84.9 Interstitial pulmonary disease, unspecified; I50.9 Heart failure, unspecified; R91.8 Other nonspecific abnormal finding of lung field

== ENCOUNTER → 2020-04-18 14:09 | Outpatient (CLI) | payer MEDICARE, BC ==
[2020-04-10 13:37] VITALS: BMI 18.2
[2020-04-18 16:29] LABS: BACTERIA MANY HPF (NONE SEEN); BILIRUBIN NEGATIVE (NEGATIVE); EPITHELIAL CELLS NSEEN /hpf (0-5); KETONE NEGATIVE (NEGATIVE); NITRITE POSITIVE (NEGATIVE); UROBILINOGEN NORMAL mg/dL (< 2); WHITE CELLS - URINE 0-5 HPF (0-4)
== END | disposition home or self-care (01) ==
LOC: D.LAB 14:09
PROVIDERS: ATTEND Family Medicine
DX: R30.0 Dysuria (principal)

== ENCOUNTER 2020-04-21 09:00 | Outpatient (CLI) | payer MEDICARE, BC ==
[~2020-04-21] VITALS: Ht 162.6 cm; Wt 48.6 kg
[2020-04-21 09:45] VITALS: BP 119/73; Ht 162.6 cm; Wt 48.6 kg
--- NOTE | 2020-04-21 12:18 | NUR ---
1120 SERVED REGULAR DIET. 1ST UNIT PRBCS INFUSING @ 200ML/HR PER ALARUS PUMP. NO COMPLAINTS OR REQUESTS VOICED. Franchesca RETANA R.N. 1210 AWAKE & ALERT, SITTING UP IN BED. 1ST UNIT PRBCS INFUSING @ 200ML/HR PER ALARUS PUMP. DENIES SHORTNESS OF BREATH & DIFFICULTY BREATHING. Franchesca Neal.N.
--- NOTE | 2020-04-21 13:31 | NUR ---
1315 FIRST 15 MINUTES OF TRANSFUSION OF PRBCS UNIT #2 COMPLETED. NO SHORTNESS OF BREATH OR DIFFICULTY BREATHING NOTED. PT STATES SHE FEELS OKAY. RATE INCREASED TO 200ML/HR PER ALARUS PUMP. RESTING QUIETLY IN BED. Franchesca RETANA R.N.
--- NOTE | 2020-04-21 14:43 | NUR ---
1400 2ND UNIT PRBCS INFUSING @ 200ML LTC WITHOUT DIFFICULTY TO RIGHT ARM PER ALARUS PUMP. Franchesca Neal.NJack 1425 RESTING QUIETLY IN BED WITH 2ND UNIT PRBCS INFUSING PER ALARUS PUMP @ 200ML/HR. Franchesca RETANA R.N.
--- NOTE | 2020-04-21 15:40 | NUR ---
1425 RESTING QUIETLY IN BED. 2ND UNIT PRBCS INFUSING @ 200ML/HR PER ALARUS PUMP. Franchesca RETANA R.N. 1455 TRANSFUSION COMPLETED. DRESSING TO PIC LINE TO RIGHT ARM CHANGED BY Alvaro MAHAN R.N. PORTS FLUSHED WITH SALINE. Franchesca RETANA R.N. 1525 AWAKE & ALERT. GIVEN DISCHARGE INSTRUCTIONS, MED REC, & POST TRANSFUSION D/C INSTRUCTIONS. PT VOICED UNDERSTANDING TO PRIVATE CAR PER WHEELCHAIR BY THIS NURSE. HOME WITH FATHER. Franchesca RETANA R.N.
== END 2020-04-21 15:25 | disposition home or self-care (01) ==
LOC: D.OPS 09:00
PROVIDERS: ATTEND Internal Medicine Medical Oncology
DX: D64.9 Anemia, unspecified (principal); C50.919 Malignant neoplasm of unspecified site of unspecified female breast